=== PATIENT | female | born 1980 | race Caucasian/White ===

== ENCOUNTER 2017-04-19 23:25 | Emergency (ER) | payer MEDICAID ==
[2017-04-20] MEDS ORDERED: Diltiazem 25 MG/5 ML SDV IVPUSH STA (00:02)
[2017-04-20] MEDS ORDERED: Diltiazem 125 MG in Sodium Chloride 0.9% 100 ML IV SCH (00:15)
[2017-04-20] MEDS ORDERED: Diltiazem 25 MG/5 ML SDV ONE (00:20)
[2017-04-20 00:55] VITALS: BP 118/82
--- NOTE | 2017-04-20 01:19 | EDM.PDOC ---
ED HPI GENERAL MEDICAL PROBLEM - General Chief Complaint: Cardiovascular Problem Stated Complaint: CHEST PAIN Time Seen by Provider: 04/19/17 23:42 Source of Information: Reports: Patient, Family (Mother), RN Notes Reviewed History Limitations: Reports: No Limitations - History of Present Illness INITIAL COMMENTS - FREE TEXT/NARRATIVE: The patient states that she has a history of paroxysmal atrial fibrillation/ flutter diagnosed approximately 2005. She states that she underwent an ablation in 2011 which decreased the frequency of her episodes. She is currently being treated with atenolol, Cardizem, and an oral anticoagulant, the name of which she cannot recall. She states that she underwent a cholecystectomy on 12/05/2016, and ever since then, the frequency of her atrial fibrillation has increased. 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 She now presents with chest pain that lasts only a few minutes, but his recurrent, along with lightheadedness and possible syncope earlier today. No palpitations. The symptoms have been coming and going over the past 2 weeks. She states that she saw her PCP, Tana Garcia on 04/08/2017, but that she forgot to mention these symptoms to her. Here in the ED, the patient's monitor indicates atrial fibrillation at 113 bpm. Her BP is 129/91. Her oxygen saturation is 98% on room air. Chest Pain Score (Numeric/FACES): 9 - Related Data Allergies Allergy/AdvReac Type Severity Reaction Status Date / Time No Known Allergies Allergy Verified 04/19/17 23:32 Home Meds: Home Meds Diltiazem HCl [Diltiazem 24Hr ER] 240 mg PO DAILY 05/31/15 [History] Gabapentin [Neurontin] 800 mg PO QID 05/31/15 [History] tiZANidine [Zanaflex] 4 mg PO TID 05/31/15 [History] Hyoscyamine Sulfate [Levsin-Sl] 0.125 mg SL TID PRN #10 tab.subl 03/26/16 [Rx] Albuterol [Proventil HFA] 2 puff INH QID PRN #1 inhaler 06/26/16 [Rx] Atenolol 12.5 mg PO BID 07/22/16 [History] hydrOXYzine HCl [Atarax] 25 mg PO QID PRN 07/27/16 [History] medroxyPROGESTERone Acetate [Depo-Provera] 150 mg IM ASDIRECTED 09/11/16 [ History] Ondansetron [Zofran ODT] 4 mg PO Q8H PRN #10 tab.dis 09/12/16 [Rx] Albuterol Sulfate 1 inh NEB Q4HR PRN 12/04/16 [History] Amitriptyline [Elavil] 1 tab PO BEDTIME 12/04/16 [History] Diltiazem HCl [Cartia Xt] 1 cap PO DAILY 12/04/16 [History] LORazepam [Ativan] 1 tab PO DAILY PRN 12/04/16 [History] Sertraline [Zoloft] 1 tab PO DAILY 12/04/16 [History] Warfarin [Coumadin] 5 mg PO SUTUTHSA 12/04/16 [History] Warfarin [Coumadin] 7.5 mg PO MOWEFR 12/04/16 [History] Zolpidem Tartrate [Ambien] 1 tab PO BEDTIME PRN 12/04/16 [History] traZODone 1 tab PO BEDTIME 12/04/16 [History] Enoxaparin Sodium [Lovenox] 100 mg SQ DAILY 12/05/16 [History] Past Medical History HEENT History: Reports: Other (See Below) Other HEENT History: wears dentures Cardiovascular History: Reports: Afib (Paroxysmal A-fib/flutter), Hypertension Respiratory History: Reports: Asthma Genitourinary History: Reports: Urinary Incontinence (stress) 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: : 3 Para: 3 Psychiatric History: Reports: Addiction, Anxiety Endocrine/Metabolic History: Reports: Obesity/BMI 30+ - Infectious Disease History Infectious Disease History: Reports: Chicken Pox - Past Surgical History HEENT Surgical History: Reports: Tonsillectomy Cardiovascular Surgical History: Reports: Cardiac Ablation GI Surgical History: Reports: Cholecystectomy Female Surgical History: Reports: Section (x 3) Musculoskeletal Surgical History: Reports: Carpal Tunnel (bilateral) Social & Family History - Family History Family Medical History: Noncontributory - Tobacco Use Smoking Status *Q: Current Every Day Smoker Years of Tobacco use: 18 Packs/Tins Daily: 1 - Caffeine Use Caffeine Use: Reports: Soda - Alcohol Use Alcohol Use History: Yes Date/Time of Last Drink Comment: 2013 - Recreational Drug Use Recreational Drug Use: No - Living Situation & Occupation Living situation: Reports: , with Family (2 kids) Occupation: Unemployed ED ROS GENERAL - Review of Systems Review Of Systems: See Below Constitutional: Reports: No Symptoms HEENT: Reports: No Symptoms Respiratory: Reports: Cough ("smoker's cough") Cardiovascular: Reports: No Symptoms Endocrine: Reports: No Symptoms GI/Abdominal: Reports: No Symptoms : Reports: No Symptoms Musculoskeletal: Reports: No Symptoms Skin: Reports: No Symptoms Neurological: Reports: No Symptoms Psychiatric: Reports: No Symptoms Hematologic/Lymphatic: Reports: No Symptoms Immunologic: Reports: No Symptoms ED EXAM, GENERAL - Physical Exam Exam: See Below Exam Limited By: No Limitations General Appearance: Alert, WD/WN, No Apparent Distress Eye Exam: Bilateral Eye: Normal Inspection Ears: Normal External Exam, Hearing Grossly Normal Ear Exam: Bilateral Ear: Auricle Normal Nose: Normal Inspection, Normal Mucosa, No Blood Throat/Mouth: Normal Inspection, Normal Lips, Normal Voice, No Airway Compromise Head: Atraumatic, Normocephalic Neck: Normal Inspection, Full Range of Motion Respiratory/Chest: No Respiratory Distress, Lungs Clear, Normal Breath Sounds, No Accessory Muscle Use Cardiovascular: Normal Peripheral Pulses, No Gallop, No JVD, No Murmur, No Rub, Tachycardia, Irregularly Irregular Peripheral Pulses: 4+: Radial (L), Radial (R) GI/Abdominal: Normal Bowel Sounds, Soft, Non-Tender, No Organomegaly, No Distention, No Abnormal Bruit, No Mass, Other (Obese) (Female) Exam: Deferred Rectal (Female) Exam: Deferred Back Exam: Normal Inspection, Full Range of Motion, NT Extremities: Normal Inspection, Normal Range of Motion, No Pedal Edema, Normal Capillary Refill Neurological: Alert, Oriented, Normal Cognition, No Motor/Sensory Deficits Psychiatric: Normal Affect Skin Exam: Warm, Dry, Intact, Normal Color, No Rash Lymphatic: No Adenopathy EKG INTERPRETATION EKG Date: 04/19/17 Time: 23:35 Rhythm: a-fib Rate (beats/min): 137 [place]: normal P-wave: absent QRS: other (Nonspecific intraventricular conduction delay, likely incomplete RBBB) ST-T: normal QT: normal Comparison: no change (06/26/2016) Course - Vital Signs Last Recorded V/S: Last Vital Signs Temp 36.9 C 04/19/17 23:33 Pulse 78 04/20/17 00:54 Resp 18 04/19/17 23:33 BP 118/82 04/20/17 00:54 Pulse Ox 98 04/20/17 00:54 - Orders/Labs/Meds Orders: Active Orders 24 hr Category Date Time Status EKG Documentation Completion [RC] STAT Care 04/19/17 23:29 Active Chest 2V [CR] Stat Exams 04/20/17 00:01 Taken Labs: Laboratory Tests 04/19/17 04/19/17 04/19/17 Range/Units 23:46 23:46 23:46 WBC 7.84 (3.98-10.04) K/mm3 RBC 5.18 (3.98-5.22) M/mm3 Hgb 14.4 (11.2-15.7) gm/L Hct 41.0 (34.1-44.9) % MCV 79.2 L (79.4-94.8) fl MCH 27.8 (25.6-32.2) pg MCHC 35.1 (32.2-35.5) g/dl RDW Std Deviation 37.1 (36.4-46.3) fL Plt Count 289 (182-369) K/mm3 MPV 11.3 (9.4-12.3) fl Neutrophils % (Manual) 56 (40-60) % Band Neutrophils % 0 (0-10) % Lymphocytes % (Manual) 40 (20-40) % Atypical Lymphs % 0 % Monocytes % (Manual) 1 L (2-10) % Eosinophils % (Manual) 3 (0.7-5.8) % Basophils % (Manual) 0 L (0.1-1.2) Platelet Estimate Adequate RBC Morph Comment Normal PT 11.3 (8.0-13.0) SECONDS INR 1.03 APTT 30 (22-36) SECONDS D-Dimer, Quantitative < 0.19 L (0.19-0.59) mg/L Sodium 141 (136-145) mEq/L Potassium 3.3 L (3.5-5.1) mEq/L Chloride 107 (98-107) mEq/L Carbon Dioxide 18 L (21-32) mEq/L Anion Gap 19.3 H (5-15) BUN 15 (7-18) mg/dL Creatinine 1.3 H (0.55-1.02) mg/dL Est Cr Clr Drug Dosing TNP Estimated GFR (MDRD) 46 (>60) mL/min BUN/Creatinine Ratio 11.5 L (14-18) Glucose 101 (74-106) mg/dL Calcium 9.1 (8.5-10.1) mg/dL Total Bilirubin 0.4 (0.2-1.0) mg/dL AST 29 (15-37) U/L ALT 64 H (14-59) U/L Alkaline Phosphatase 125 H (46-116) U/L Troponin I < 0.017 (0.00-0.056) ng/mL B-Natriuretic Peptide (0-100) pg/mL Total Protein 7.4 (6.4-8.2) g/dl Albumin 4.1 (3.4-5.0) g/dl Globulin 3.3 gm/dL Albumin/Globulin Ratio 1.2 (1-2) 05//17 Range/Units 23:46 WBC (3.98-10.04) K/mm3 RBC (3.98-5.22) M/mm3 Hgb (11.2-15.7) gm/L Hct (34.1-44.9) % MCV (79.4-94.8) fl MCH (25.6-32.2) pg MCHC (32.2-35.5) g/dl RDW Std Deviation (36.4-46.3) fL Plt Count (182-369) K/mm3 MPV (9.4-12.3) fl Neutrophils % (Manual) (40-60) % Band Neutrophils % (0-10) % Lymphocytes % (Manual) (20-40) % Atypical Lymphs % % Monocytes % (Manual) (2-10) % Eosinophils % (Manual) (0.7-5.8) % Basophils % (Manual) (0.1-1.2) Platelet Estimate RBC Morph Comment PT (8.0-13.0) SECONDS INR APTT (22-36) SECONDS D-Dimer, Quantitative (0.19-0.59) mg/L Sodium (136-145) mEq/L Potassium (3.5-5.1) mEq/L Chloride (98-107) mEq/L Carbon Dioxide (21-32) mEq/L Anion Gap (5-15) BUN (7-18) mg/dL Creatinine (0.55-1.02) mg/dL Est Cr Clr Drug Dosing Estimated GFR (MDRD) (>60) mL/min BUN/Creatinine Ratio (14-18) Glucose (74-106) mg/dL Calcium (8.5-10.1) mg/dL Total Bilirubin (0.2-1.0) mg/dL AST (15-37) U/L ALT (14-59) U/L Alkaline Phosphatase (46-116) U/L Troponin I (0.00-0.056) ng/mL B-Natriuretic Peptide 76 (0-100) pg/mL Total Protein (6.4-8.2) g/dl Albumin (3.4-5.0) g/dl Globulin gm/dL Albumin/Globulin Ratio (1-2) Meds: Medications Discontinued Medications Generic Name Dose Route Start Last Admin Trade Name Liset PRN Reason Stop Dose Admin Diltiazem HCl 10 mg 04/20/17 00:02 04/20/17 00:29 Diltiazem IVPUSH 04/20/17 00:03 10 mg ONETIME STA Administration Diltiazem HCl Confirm 04/20/17 00:20 04/20/17 00:29 Diltiazem Administered 04/20/17 00:21 Not Given Dose 25 mg .ROUTE .STK-MED ONE Diltiazem HCl 125 mg/ Sodium 125 mls @ 10 mls/hr 04/20/17 00:15 04/20/17 00: 34 Chloride IV 10 mg/hr TITRATE MALIKA 10 mls/hr Protocol Administration 10 MG/HR - Radiology Interpretation Free Text/Narrative:: Two-view chest radiograph reviewed. Mild cardiomegaly is noted. No pulmonary vascular congestion. No pleural effusions. No focal infiltrate. No pneumothorax. Formal read per the Radiologist pending. - Re-Assessments/Exams Free Text/Narrative Re-Assessment/Exam: 04/20/17 01:23 The patient's heart rate is now 76 following Cardizem 10 mg IV push and Cardizem drip at 10 mg per hour. The patient would like to go home. As this is a recurrent issue, I do not feel strongly that she needs to be admitted to the hospital. I would like to increase the patient's Cardizem, however, the patient does not know the dosage of her medications. I will have her followup with her Paring Machine Operator this coming week. Departure - Departure Time of Disposition: : Disposition: Home, Self-Care 01 Condition: fair Clinical Impression: Atrial fibrillation with RVR Instructions: Atrial Fibrillation, [id number] Referrals: Tana Garcia PA-C [Primary Care Provider] - Forms: ED Department Discharge Additional Instructions: You were seen in the emergency room for recurrent chest pain. Workup in the ER included blood work, an ECG, and a chest x-ray. Your workup showed that you are in atrial fibrillation with rapid ventricular response. The remainder of your workup was unremarkable. You have not suffered a heart attack. You do not have a blood clot in her lungs. You do not have pneumonia. You are not anemic. Your not in congestive heart failure. Your heart was slowed down with IV Cardizem. We would like to increase the dosage of your oral Cardizem, however, we are not certain of your current dose. Please followup with your Paring Machine Operator at the next available appointment. If any other problems, please do not hesitate to return to the ER. - My Orders Last 24 Hours: My Active Orders 04/19/17 23:29 EKG Documentation Completion [RC] STAT 04/20/17 00:01 Chest 2V [CR] Stat - Assessment/Plan Last 24 Hours: My Active Orders 04/19/17 23:29 EKG Documentation Completion [RC] STAT 04/20/17 00:01 Chest 2V [CR] Stat
--- NOTE | 2017-04-21 08:17 | CR ---
Chest: Two views of the chest were obtained. Comparison: No previous chest x-ray. Heart size slightly enlarged. Upper mediastinum is normal. Lungs are clear with no acute infiltrates. Surgical clips are seen from prior cholecystectomy. Minimal degenerative change is scattered within the spine. Impression: 1. Slight cardiomegaly and other incidental findings. Nothing acute is appreciated. Diagnostic code #2
== END 2017-04-20 01:39 | disposition home or self-care (01) ==
LOC: JD.ED 23:25
DX: I48.91 Unspecified atrial fibrillation (principal); I10 Essential (primary) hypertension; J45.909 Unspecified asthma, uncomplicated; F41.9 Anxiety disorder, unspecified; E66.9 Obesity, unspecified; Z98.890 Other specified postprocedural states; Z90.49 Acquired absence of other specified parts of digestive tract; Z79.899 Other long term (current) drug therapy; Z79.01 Long term (current) use of anticoagulants; Z79.02 Long term (current) use of antithrombotics/antiplatelets; F17.210 Nicotine dependence, cigarettes, uncomplicated; Z68.41 Body mass index [BMI] 40.0-44.9, adult
CPT/HCPCS: 36415; 71020; 80053; 83880; 84484; 85025; 85379; 85610; 85730; 93005; 96365; 99285; J7030; 99284; J3490

== ENCOUNTER 2017-07-03 12:11 | Emergency (ER) | payer MEDICAID ==
[2017-07-03] MEDS ORDERED: Aspirin 81 MG Tab.Chew PO ONE (12:27)
[2017-07-03] MEDS ORDERED: Sodium Chloride 0.9% 10 ML Syringe FLUSH PRN (12:27)
[2017-07-03] MEDS ORDERED: Diltiazem 25 MG/5 ML SDV IVPUSH ONE (12:28)
[2017-07-03] MEDS ORDERED: Sodium Chloride 0.9% 1,000 ML IV SCH (12:30)
[2017-07-03] MEDS ORDERED: Diltiazem 125 MG in Sodium Chloride 0.9% 100 ML IV SCH (12:30)
[2017-07-03] MEDS ORDERED: Ketorolac 30 MG/ML SDV IVPUSH ONE (13:25)
--- NOTE | 2017-07-03 14:31 | EDM.PDOC ---
ED HPI GENERAL MEDICAL PROBLEM - General Chief Complaint: Chest Pain Stated Complaint: CHEST PAIN Time Seen by Provider: 07/03/17 12:19 Source of Information: Reports: Patient History Limitations: Reports: No Limitations - History of Present Illness INITIAL COMMENTS - FREE TEXT/NARRATIVE: The patient presents with palpitations, chest pain and tingling and numbness in her face. The chest pain has been there for 2 weeks. The facial numbness started this morning. She has no shortness of breath. She has a history of A- fib and she is on eliquis. She denies any recent changes to her medications. She is going to [place] to see her fisheries director next week. Onset: Gradual Duration: Week(s): Location: Reports: Chest Quality: Reports: Sharp Severity: Moderate Improves with: Reports: None Worsens with: Reports: None Context: Reports: Activity Associated Symptoms: Reports: Chest Pain. Denies: Shortness of Breath Chest Pain Score (Numeric/FACES): 7 - Related Data Allergies Allergy/AdvReac Type Severity Reaction Status Date / Time No Known Allergies Allergy Verified 04/19/17 23:32 Home Meds: Home Meds Diltiazem HCl [Diltiazem 24Hr ER] 240 mg PO DAILY 05/31/15 [History] Gabapentin [Neurontin] 800 mg PO QID 05/31/15 [History] tiZANidine [Zanaflex] 4 mg PO QID 05/31/15 [History] Albuterol [Proventil HFA] 2 puff INH QID PRN #1 inhaler 06/26/16 [Rx] Atenolol 12.5 mg PO BID 07/22/16 [History] hydrOXYzine HCl [Atarax] 50 mg PO QID PRN 07/27/16 [History] medroxyPROGESTERone Acetate [Depo-Provera] 150 mg IM ASDIRECTED 09/11/16 [ History] LORazepam [Ativan] 1 tab PO DAILY PRN 12/04/16 [History] Sertraline [Zoloft] 100 mg PO BID 12/04/16 [History] Zolpidem Tartrate [Ambien] 1 tab PO BEDTIME PRN 12/04/16 [History] traZODone 1 tab PO BEDTIME 12/04/16 [History] Apixaban [Eliquis] 5 mg PO BID 07/03/17 [History] Potassium Chloride 20 meq PO DAILY #20 tablet.er 07/03/17 [Rx] Past Medical History HEENT History: Reports: Other (See Below) Other HEENT History: wears dentures Cardiovascular History: Reports: Afib Other Cardiovascular History: atrial fib and flutter. 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: Musculoskeletal History: Reports: Other (See Below) Other Musculoskeletal History: hand weakness, carpal tunnel, muscle spasm Neurological History: Reports: CVA, Migraines, TIA Psychiatric History: Reports: Addiction, Anxiety Endocrine/Metabolic History: Reports: Obesity/BMI 30+ Dermatologic History: Reports: Other (See Below) Other Dermatologic History: r hand burn - Infectious Disease History Infectious Disease History: Reports: Chicken Pox - Past Surgical History HEENT Surgical History: Reports: Tonsillectomy Cardiovascular Surgical History: Reports: Cardiac Ablation Respiratory Surgical History: Reports: None GI Surgical History: Reports: Cholecystectomy Female Surgical History: Reports: Section Musculoskeletal Surgical History: Reports: Carpal Tunnel Social & Family History - Family History Family Medical History: Noncontributory - Tobacco Use Smoking Status *Q: Current Every Day Smoker Years of Tobacco use: 18 Packs/Tins Daily: 1 Used Tobacco, but Quit: No Second Hand Smoke Exposure: No - Caffeine Use Caffeine Use: Reports: Soda - Recreational Drug Use Recreational Drug Use: No - Living Situation & Occupation Living situation: Reports: , with Family (2 kids) Occupation: Unemployed ED ROS GENERAL - Review of Systems Review Of Systems: See Below Constitutional: Reports: No Symptoms HEENT: Reports: No Symptoms Respiratory: Reports: No Symptoms Cardiovascular: Reports: Chest Pain Endocrine: Reports: No Symptoms GI/Abdominal: Reports: No Symptoms : Reports: No Symptoms Musculoskeletal: Reports: No Symptoms Skin: Reports: No Symptoms Neurological: Reports: Numbness (face and tingling) ED EXAM, GENERAL - Physical Exam Exam: See Below Exam Limited By: No Limitations General Appearance: Alert, No Apparent Distress Ears: Normal External Exam Nose: Normal Inspection Head: Atraumatic, Normocephalic Neck: Normal Inspection Respiratory/Chest: No Respiratory Distress, Lungs Clear, Normal Breath Sounds Cardiovascular: No Edema, No Murmur, Irregularly Irregular GI/Abdominal: Soft, Non-Tender, No Organomegaly, No Mass Back Exam: Normal Inspection Extremities: Normal Inspection Neurological: Alert, Oriented, Other (No weakness but she does have numbness to both sides of her face) EKG INTERPRETATION EKG Date: 07/03/17 Time: 12:48 Rhythm: A-Fib Rate (Beats/Min): 97 [place]: Normal P-Wave: Present QRS: Normal ST-T: Normal QT: Normal Course - Vital Signs Last Recorded V/S: Last Vital Signs Temp 97.3 F 07/03/17 12:48 Pulse 95 07/03/17 12:48 Resp 17 07/03/17 12:48 BP 135/96 H 07/03/17 12:48 Pulse Ox 97 07/03/17 12:48 - Orders/Labs/Meds Orders: Active Orders 24 hr Category Date Time Status Cardiac Monitoring [RC] . DIRECTED Care 07/03/17 12:27 Active EKG Documentation Completion [RC] STAT Care 07/03/17 12:27 Active Oxygen Therapy [RC] PRN Care 07/03/17 12:27 Active Peripheral IV Care [RC] . DIRECTED Care 07/03/17 12:28 Active Chest 1V Frontal [CR] Stat Exams 07/03/17 12:28 Taken Head wo Cont [CT] Stat Exams 07/03/17 12:29 Taken Diltiazem 125 mg Med 07/03/17 12:30 Active Sodium Chloride 0.9% [Normal Saline] 100 ml IV TITRATE Sodium Chloride 0.9% [Normal Saline] 1,000 ml Med 07/03/17 12:30 Active IV ASDIRECTED Sodium Chloride 0.9% [Saline Flush] Med 07/03/17 12:27 Active 10 ml FLUSH ASDIRECTED PRN Peripheral IV Insertion Adult [OM.PC] Stat Oth 07/03/17 12:27 Ordered Medication Orders Diltiazem HCl 125 mg/ Sodium (Chloride) 125 mls @ 10 mls/hr IV TITRATE MALIKA; 10 MG/HR PRN Reason: Protocol Last Admin: 07/03/17 13:00 Dose: 10 mg/hr, 10 mls/hr Sodium Chloride (Normal Saline) 1,000 mls @ 125 mls/hr IV ASDIRECTED MALIKA Last Admin: 07/03/17 13:04 Dose: 125 mls/hr Sodium Chloride (Saline Flush) 10 ml FLUSH ASDIRECTED PRN PRN Reason: Keep Vein Open Last Admin: 07/03/17 13:19 Dose: 10 ml Labs: Laboratory Tests 07/03/17 07/03/17 07/03/17 Range/Units 13:04 13:04 13:04 WBC 7.61 (3.98-10.04) K/mm3 RBC 4.76 (3.98-5.22) M/mm3 Hgb 13.3 (11.2-15.7) gm/L Hct 37.3 (34.1-44.9) % MCV 78.4 L (79.4-94.8) fl MCH 27.9 (25.6-32.2) pg MCHC 35.7 H (32.2-35.5) g/dl RDW Std Deviation 38.8 (36.4-46.3) fL Plt Count 216 (182-369) K/mm3 MPV 11.1 (9.4-12.3) fl Neut % (Auto) 50.3 (34.0-71.1) % Lymph % (Auto) 38.5 (19.3-51.7) % [place] % (Auto) 8.8 (4.7-12.5) % Eos % (Auto) 1.6 (0.7-5.8) Baso % (Auto) 0.7 (0.1-1.2) % Neut # (Auto) 3.83 (1.56-6.13) K/mm3 Lymph # (Auto) 2.93 (1.18-3.74) K/mm3 [place] # (Auto) 0.67 H (0.24-0.36) K/mm3 Eos # (Auto) 0.12 (0.04-0.36) K/mm3 Baso # (Auto) 0.05 (0.01-0.08) K/mm3 PT 10.8 (8.0-13.0) SECONDS INR 0.99 Sodium 140 (136-145) mEq/L Potassium 2.5 L (3.5-5.1) mEq/L Chloride 105 (98-107) mEq/L Carbon Dioxide 24 (21-32) mEq/L Anion Gap 13.5 (5-15) BUN 15 (7-18) mg/dL Creatinine 1.2 H (0.55-1.02) mg/dL Est Cr Clr Drug Dosing 55.43 mL/min Estimated GFR (MDRD) 51 (>60) mL/min BUN/Creatinine Ratio 12.5 L (14-18) Glucose 107 H (74-106) mg/dL Calcium 9.4 (8.5-10.1) mg/dL Total Bilirubin 0.3 (0.2-1.0) mg/dL AST 15 (15-37) U/L ALT 33 (14-59) U/L Alkaline Phosphatase 81 (46-116) U/L Troponin I < 0.017 (0.00-0.056) ng/mL Total Protein 6.7 (6.4-8.2) g/dl Albumin 4.0 (3.4-5.0) g/dl Globulin 2.7 gm/dL Albumin/Globulin Ratio 1.5 (1-2) HCG, Qual (NEGATIVE) 07/03/17 Range/Units 13:04 WBC (3.98-10.04) K/mm3 RBC (3.98-5.22) M/mm3 Hgb (11.2-15.7) gm/L Hct (34.1-44.9) % MCV (79.4-94.8) fl MCH (25.6-32.2) pg MCHC (32.2-35.5) g/dl RDW Std Deviation (36.4-46.3) fL Plt Count (182-369) K/mm3 MPV (9.4-12.3) fl Neut % (Auto) (34.0-71.1) % Lymph % (Auto) (19.3-51.7) % [place] % (Auto) (4.7-12.5) % Eos % (Auto) (0.7-5.8) Baso % (Auto) (0.1-1.2) % Neut # (Auto) (1.56-6.13) K/mm3 Lymph # (Auto) (1.18-3.74) K/mm3 [place] # (Auto) (0.24-0.36) K/mm3 Eos # (Auto) (0.04-0.36) K/mm3 Baso # (Auto) (0.01-0.08) K/mm3 PT (8.0-13.0) SECONDS INR Sodium (136-145) mEq/L Potassium (3.5-5.1) mEq/L Chloride (98-107) mEq/L Carbon Dioxide (21-32) mEq/L Anion Gap (5-15) BUN (7-18) mg/dL Creatinine (0.55-1.02) mg/dL Est Cr Clr Drug Dosing mL/min Estimated GFR (MDRD) (>60) mL/min BUN/Creatinine Ratio (14-18) Glucose (74-106) mg/dL Calcium (8.5-10.1) mg/dL Total Bilirubin (0.2-1.0) mg/dL AST (15-37) U/L ALT (14-59) U/L Alkaline Phosphatase (46-116) U/L Troponin I (0.00-0.056) ng/mL Total Protein (6.4-8.2) g/dl Albumin (3.4-5.0) g/dl Globulin gm/dL Albumin/Globulin Ratio (1-2) HCG, Qual Negative (NEGATIVE) Meds: Medications Generic Name Dose Route Start Last Admin Trade Name Freq PRN Reason Stop Dose Admin Diltiazem HCl 125 mg/ Sodium 125 mls @ 10 mls/hr 07/03/17 12:30 07/03/17 13: 00 Chloride IV 10 mg/hr TITRATE MALIKA 10 mls/hr Protocol Administration 10 MG/HR Sodium Chloride 1,000 mls @ 125 mls/hr 07/03/17 12:30 07/03/17 13:04 Normal Saline IV 125 mls/hr ASDIRECTED MALIKA Administration Sodium Chloride 10 ml 07/03/17 12:27 07/03/17 13:19 Saline Flush FLUSH 10 ml ASDIRECTED PRN Administration Keep Vein Open Discontinued Medications Generic Name Dose Route Start Last Admin Trade Name Freq PRN Reason Stop Dose Admin Aspirin 324 mg 07/03/17 12:27 07/03/17 12:53 Aspirin PO 07/03/17 12:28 324 mg ONETIME ONE Administration Diltiazem HCl 10 mg 07/03/17 12:28 07/03/17 12:54 Diltiazem IVPUSH 07/03/17 12:29 10 mg ONETIME ONE Administration Ketorolac Tromethamine 30 mg 07/03/17 13:25 07/03/17 13:33 Toradol IVPUSH 07/03/17 13:26 30 mg ONETIME ONE Administration - Re-Assessments/Exams Free Text/Narrative Re-Assessment/Exam: 07/03/17 14:28 I ordered an IV saline lock, EKG, CXR, labs, aspirin, and a CT of her head. Her EKG shows atrial fib with no acute changes. Her CT looks good. Her CXR looks good. Her CBC looks good. Her CMP shows a low K of 2.5. Her troponin is negative. I ordered a cardizem bolus and drip. Her heart rate is much better. She asked for some toradol and the numbness in her face and chest pain went away. I will get her on some potassium and have her follow up with her fisheries director next week. Departure - Departure Time of Disposition: 14:35 Disposition: Home, Self-Care 01 Condition: Good Clinical Impression: Atrial fibrillation with RVR, Hypokalemia Chest pain Qualifiers: Chest pain type: unspecified Qualified Code(s): R07.9 - Chest pain, unspecified Prescriptions: Potassium Chloride 20 meq PO DAILY #20 tablet.er Referrals: Tana Garcia PA-C [Primary Care Provider] - Forms: ED Department Discharge Additional Instructions: Take your medication as prescribed. Take the potassium daily and have your potassium rechecked in 1 week. Please return if you are worse. - My Orders Last 24 Hours: My Active Orders 07/03/17 12:27 Cardiac Monitoring [RC] . DIRECTED EKG Documentation Completion [RC] STAT Oxygen Therapy [RC] PRN Sodium Chloride 0.9% [Saline Flush] 10 ml FLUSH ASDIRECTED PRN Peripheral IV Insertion Adult [OM.PC] Stat 07/03/17 12:28 Peripheral IV Care [RC] . DIRECTED Chest 1V Frontal [CR] Stat 07/03/17 12:29 Head wo Cont [CT] Stat 07/03/17 12:30 Diltiazem 125 mg Sodium Chloride 0.9% [Normal Saline] 100 ml IV TITRATE Sodium Chloride 0.9% [Normal Saline] 1,000 ml IV ASDIRECTED - Assessment/Plan Last 24 Hours: My Active Orders 07/03/17 12:27 Cardiac Monitoring [RC] . DIRECTED EKG Documentation Completion [RC] STAT Oxygen Therapy [RC] PRN Sodium Chloride 0.9% [Saline Flush] 10 ml FLUSH ASDIRECTED PRN Peripheral IV Insertion Adult [OM.PC] Stat 07/03/17 12:28 Peripheral IV Care [RC] . DIRECTED Chest 1V Frontal [CR] Stat 07/03/17 12:29 Head wo Cont [CT] Stat 07/03/17 12:30 Diltiazem 125 mg Sodium Chloride 0.9% [Normal Saline] 100 ml IV TITRATE Sodium Chloride 0.9% [Normal Saline] 1,000 ml IV ASDIRECTED
[2017-07-03 14:40] VITALS: BP 115/75
--- NOTE | 2017-07-04 11:04 | CT ---
Head CT Technique: Multiple axial sections through the brain were obtained. Intravenous contrast was not utilized. Comparison: Previous MRI brain dated 04/24/17 is available. Findings: Ventricles along with basal cisterns and sulci over the convexities are within normal limits for the patient's age. No abnormal parenchymal densities are seen. No evidence of intracranial hemorrhage. No midline shift or mass effect is seen. Bone window settings were reviewed which show no acute calvarial abnormality. Visualized sinuses are clear. Impression: 1. No abnormality is identified on noncontrast head CT exam. Diagnostic code #1 I agree with preliminary report issued by [facility] ([facility] report finalized on 07/03/17, 2:43 PM Central Time)
--- NOTE | 2017-07-04 11:04 | CR ---
Chest: Portable view of the chest was obtained. Comparison: Previous chest x-ray of 04/20/17. Heart size and mediastinum are within normal limits for portable technique. Lungs are clear. Bony structures are grossly intact. Surgical clips are noted from prior cholecystectomy. Impression: 1. Nothing acute is identified on portable chest x-ray. Diagnostic code #1
== END 2017-07-03 15:05 | disposition home or self-care (01) ==
LOC: JD.ED 12:11
DX: I48.91 Unspecified atrial fibrillation (principal); E87.6 Hypokalemia; R20.0 Anesthesia of skin; F17.210 Nicotine dependence, cigarettes, uncomplicated; Z86.73 Personal history of transient ischemic attack (TIA), and cerebral infarction without residual deficits; E66.9 Obesity, unspecified; Z98.890 Other specified postprocedural states; Z90.49 Acquired absence of other specified parts of digestive tract; Z79.899 Other long term (current) drug therapy
CPT/HCPCS: 36415; 70450; 71010; 80053; 84484; 84703; 85025; 85610; 93005; 96365; 96366; 96375; 96376; 99285; A9270; J1885; J7030; J7040; J7050; 99284; J3490

== ENCOUNTER 2017-07-12 15:17 | Emergency (ER) | payer MEDICAID ==
[2017-07-12] MEDS ORDERED: Sodium Chloride 0.9% 10 ML Syringe FLUSH PRN (15:53)
[2017-07-12] MEDS ORDERED: Diltiazem 25 MG/5 ML SDV IVPUSH ONE (15:57)
[2017-07-12] MEDS ORDERED: Diltiazem 125 MG in Sodium Chloride 0.9% 100 ML IV SCH (16:00)
[2017-07-12] MEDS ORDERED: Ketorolac 15 MG/ML SDV IVPUSH ONE (17:11)
--- NOTE | 2017-07-12 18:33 | EDM.PDOC ---
ED HPI GENERAL MEDICAL PROBLEM - General Chief Complaint: Cardiovascular Problem Stated Complaint: A-FIB Time Seen by Provider: 07/12/17 15:40 Source of Information: Reports: Patient, Old Records (recent ER visits) History Limitations: Reports: No Limitations - History of Present Illness INITIAL COMMENTS - FREE TEXT/NARRATIVE: 36 year old female presents for evaluation and treatment of a.fib with RVR. Patient reports she has had a.fib for several years. Had an ablation June 07, 2012. She is currently on atenolol, cardizem and eliquis for her a.fib. States she has been taking her medications as prescribed. Reports she last took a cardizem at 0400 today. Reports current symptoms of fatigue, near syncope, lightheadedness, headache and nausea. States this is how she feels when her heart rate increases. Heart rate was in the 140s at home. Patient took a zofran about 4 or 5 hours prior to arrival in the ER. Patient presented to the clinic but was sent over to us for further care. States when this occurs she frequently responds with a cardizem bolus and drip. Denies any chest pain or shortness of breath. Patient reports she is scheduled to have an ablation with Dr. Metzger in [place]. Headache Pain Score (Numeric/FACES): 9 - Related Data Allergies Allergy/AdvReac Type Severity Reaction Status Date / Time No Known Allergies Allergy Verified 07/12/17 15:30 Home Meds: Home Meds Diltiazem HCl [Diltiazem 24Hr ER] 240 mg PO DAILY 05/31/15 [History] Gabapentin [Neurontin] 800 mg PO QID 05/31/15 [History] tiZANidine [Zanaflex] 4 mg PO QID 05/31/15 [History] Albuterol [Proventil HFA] 2 puff INH QID PRN #1 inhaler 06/26/16 [Rx] Atenolol 12.5 mg PO BID 07/22/16 [History] hydrOXYzine HCl [Atarax] 50 mg PO QID PRN 07/27/16 [History] medroxyPROGESTERone Acetate [Depo-Provera] 150 mg IM ASDIRECTED 09/11/16 [ History] LORazepam [Ativan] 1 tab PO DAILY PRN 12/04/16 [History] Sertraline [Zoloft] 100 mg PO BID 12/04/16 [History] Zolpidem Tartrate [Ambien] 1 tab PO BEDTIME PRN 12/04/16 [History] traZODone 1 tab PO BEDTIME 12/04/16 [History] Apixaban [Eliquis] 5 mg PO BID 07/03/17 [History] Potassium Chloride 20 meq PO DAILY #20 tablet.er 07/03/17 [Rx] Past Medical History HEENT History: Reports: Other (See Below) Other HEENT History: wears dentures Cardiovascular History: Reports: Afib Other Cardiovascular History: atrial fib and flutter. 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 History: Reports: None [employer] History: Reports: Other OB/BYN History: Musculoskeletal History: Reports: Other (See Below) Other Musculoskeletal History: hand weakness, carpal tunnel, muscle spasm Neurological History: Reports: CVA, Migraines, TIA Psychiatric History: Reports: Addiction, Anxiety Endocrine/Metabolic History: Reports: Obesity/BMI 30+ Dermatologic History: Reports: Other (See Below) Other Dermatologic History: r hand burn - Infectious Disease History Infectious Disease History: Reports: Chicken Pox - Past Surgical History HEENT Surgical History: Reports: Tonsillectomy Cardiovascular Surgical History: Reports: Cardiac Ablation Respiratory Surgical History: Reports: None GI Surgical History: Reports: Cholecystectomy Female Surgical History: Reports: Section Musculoskeletal Surgical History: Reports: Carpal Tunnel Social & Family History - Family History Family Medical History: Noncontributory - Tobacco Use Smoking Status *Q: Current Every Day Smoker Years of Tobacco use: 18 Packs/Tins Daily: 1 Used Tobacco, but Quit: No Second Hand Smoke Exposure: No - Caffeine Use Caffeine Use: Reports: Soda Other Caffeine Use: Daily - Recreational Drug Use Recreational Drug Use: No - Living Situation & Occupation Living situation: Reports: , with Family (2 kids) Occupation: Unemployed ED ROS GENERAL - Review of Systems Review Of Systems: See Below Constitutional: Reports: Malaise, Fatigue Respiratory: Denies: Shortness of Breath Cardiovascular: Denies: Chest Pain GI/Abdominal: Reports: Nausea. Denies: Vomiting Neurological: Reports: Dizziness, Headache. Denies: Syncope (near syncope) ED EXAM, GENERAL - Physical Exam Exam: See Below Exam Limited By: No Limitations General Appearance: Alert, WD/WN, No Apparent Distress Ears: Normal External Exam Nose: Normal Inspection Neck: Normal Inspection Respiratory/Chest: No Respiratory Distress, Lungs Clear, Normal Breath Sounds Cardiovascular: Normal Peripheral Pulses, No Murmur, Tachycardia, Irregularly Irregular Peripheral Pulses: 2+: Radial (L), Radial (R) Neurological: Alert, Oriented, Normal Cognition Psychiatric: Normal Affect, Normal Mood Skin Exam: Warm, Dry, Normal Color EKG INTERPRETATION EKG Date: 07/12/17 Time: 15:35 Rhythm: A-Fib Rate (Beats/Min): 129 [place]: Normal P-Wave: Absent QRS: Normal ST-T: Normal QT: Normal EKG Interpretation Comments: a.fib with RVR rate of 129. No ischemic changes. Reviewed by myself and Dr. Fofana. Course - Vital Signs Last Recorded V/S: Last Vital Signs Temp 36.9 C 07/12/17 15:25 Pulse 88 07/12/17 18:40 Resp 18 07/12/17 18:40 BP 145/74 H 07/12/17 18:40 Pulse Ox 99 07/12/17 18:40 - Orders/Labs/Meds Labs: Laboratory Tests 07/12/17 07/12/17 07/12/17 Range/Units 15:35 15:35 15:35 WBC 6.25 (3.98-10.04) K/mm3 RBC 4.82 (3.98-5.22) M/mm3 Hgb 13.4 (11.2-15.7) gm/L Hct 38.3 (34.1-44.9) % MCV 79.5 (79.4-94.8) fl MCH 27.8 (25.6-32.2) pg MCHC 35.0 (32.2-35.5) g/dl RDW Std Deviation 42.3 (36.4-46.3) fL Plt Count 238 (182-369) K/mm3 MPV 11.7 (9.4-12.3) fl Neut % (Auto) 43.2 (34.0-71.1) % Lymph % (Auto) 42.7 (19.3-51.7) % [place] % (Auto) 9.0 (4.7-12.5) % Eos % (Auto) 4.6 (0.7-5.8) Baso % (Auto) 0.5 (0.1-1.2) % Neut # (Auto) 2.70 (1.56-6.13) K/mm3 Lymph # (Auto) 2.67 (1.18-3.74) K/mm3 [place] # (Auto) 0.56 H (0.24-0.36) K/mm3 Eos # (Auto) 0.29 (0.04-0.36) K/mm3 Baso # (Auto) 0.03 (0.01-0.08) K/mm3 Sodium 142 (136-145) mEq/L Potassium 3.2 L (3.5-5.1) mEq/L Chloride 113 H (98-107) mEq/L Carbon Dioxide 16 L (21-32) mEq/L Anion Gap 16.2 H (5-15) BUN 11 (7-18) mg/dL Creatinine 1.0 (0.55-1.02) mg/dL Est Cr Clr Drug Dosing TNP Estimated GFR (MDRD) > 60 (>60) mL/min BUN/Creatinine Ratio 11.0 L (14-18) Glucose 137 H (74-106) mg/dL Calcium 9.1 (8.5-10.1) mg/dL Total Bilirubin 0.3 (0.2-1.0) mg/dL AST 21 (15-37) U/L ALT 60 H (14-59) U/L Alkaline Phosphatase 95 (46-116) U/L Troponin I < 0.017 (0.00-0.056) ng/mL Tli-H-Mcmrguspslj Pept 873 H (0-125) pg/mL Total Protein 6.2 L (6.4-8.2) g/dl Albumin 3.6 (3.4-5.0) g/dl Globulin 2.6 gm/dL Albumin/Globulin Ratio 1.4 (1-2) HCG, Qual Negative (NEGATIVE) Meds: Medications Discontinued Medications Generic Name Dose Route Start Last Admin Trade Name Freq PRN Reason Stop Dose Admin Diltiazem HCl 10 mg 07/12/17 15:57 07/12/17 16:05 Diltiazem IVPUSH 07/12/17 15:58 10 mg ONETIME ONE Administration Diltiazem HCl 125 mg/ Sodium 125 mls @ 10 mls/hr 07/12/17 16:00 Chloride IV TITRATE MALIKA Protocol 10 MG/HR Ketorolac Tromethamine 15 mg 07/12/17 17:11 07/12/17 17:20 Toradol IVPUSH 07/12/17 17:12 15 mg ONETIME ONE Administration Sodium Chloride 10 ml 07/12/17 15:53 07/12/17 15:57 Saline Flush FLUSH 10 ml ASDIRECTED PRN Administration Keep Vein Open - Radiology Interpretation Free Text/Narrative:: chest xray 1 view shows no acute intrathoracic process. - Re-Assessments/Exams Free Text/Narrative Re-Assessment/Exam: 07/12/17 18:30 Patient's heart rate dropped into the 70s-80s with the cardizem bolus. Therefore , the drip was held. I reviewed the patient's labs with her. At this point she is anxious to go home and does not want to stay in the hospital. I will have her follow-up with her PCP for further management and care until she sees cardiology. Discharge instructions as documented. Departure - Departure Time of Disposition: 18:31 Disposition: Home, Self-Care 01 Condition: Good Clinical Impression: Atrial fibrillation Instructions: Atrial Fibrillation, [id number] Referrals: Tana Garcia PA-C [Primary Care Provider] - Forms: ED Department Discharge, ED Return to Work/School Form Additional Instructions: Follow-up with PCP this week for a recheck of your symptoms. Continue with your current plan of care and see cardiology as planned in one month. Please return to the ER if your symptoms change or worsen.
[2017-07-12 18:54] VITALS: BP 145/74
--- NOTE | 2017-07-15 07:25 | CR ---
Chest: Frontal view of the chest was obtained. Comparison: Previous chest x-ray of 07/13/17. Heart size and mediastinum are within normal limits. Lungs are clear. Bony structures are grossly intact. Impression: 1. Nothing acute is identified on frontal chest x-ray. Diagnostic code #1
== END 2017-07-12 18:40 | disposition home or self-care (01) ==
LOC: JD.ED 15:17
DX: I48.91 Unspecified atrial fibrillation (principal); J45.909 Unspecified asthma, uncomplicated; F41.9 Anxiety disorder, unspecified; E66.9 Obesity, unspecified; Z86.73 Personal history of transient ischemic attack (TIA), and cerebral infarction without residual deficits; Z90.49 Acquired absence of other specified parts of digestive tract; Z98.890 Other specified postprocedural states; F17.210 Nicotine dependence, cigarettes, uncomplicated; Z68.39 Body mass index [BMI] 39.0-39.9, adult; Z79.899 Other long term (current) drug therapy
CPT/HCPCS: 36415; 71010; 80053; 83880; 84484; 84703; 85025; 93005; 96374; 96375; 99285; J1885; J7050; J3490

== ENCOUNTER 2017-09-06 13:08 | Emergency (ER) | payer MEDICAID ==
[2017-09-06 13:27] VITALS: BP 136/87
--- NOTE | 2017-09-06 13:46 | EDM.PDOC ---
ED HPI GENERAL MEDICAL PROBLEM - General Chief Complaint: General Stated Complaint: HEADACHE Time Seen by Provider: 09/06/17 13:36 Source of Information: Reports: Patient History Limitations: Reports: No Limitations - History of Present Illness INITIAL COMMENTS - FREE TEXT/NARRATIVE: 37-year-old female presents to the ED with increasing signs and symptoms of illness. She was started on Augmentin 875 mg twice a day on Saturday i.e. 3 days ago for suspected sinus infection. Imaging studies were not done of her sinuses. Since then she continued to have fever and intermittent chills. Her exam today she can't get warm. She's had diarrhea developed since starting the Augmentin. She's got a really bad headache which she claims is migraine 5 days associated with nausea and vomiting. Hasn't kept down much fluids or food or fluids in the last 3 days. Does have a productive sounding cough at times. This makes her headache much worse. Not really aware of any postnasal drip to suggest sinus infection. Does have a sore throat. No genitourinary complaints. Stools have been loose without blood. This is bilious without any blood. Of note she underwent cardiac catheterization on the for an ablation procedure for atrial fibrillation. She remains on Eliquis at this time as well as her Cardiazem for rate control. Wound in her right groin hurts a bit when she coughs but otherwise is not red or swollen. Onset: Gradual Onset Date: 09/04/17 Duration: Day(s): Location: Reports: Generalized (Mild diarrhea) Quality: Reports: Pressure, Throbbing, Other Severity: Moderate (Pounding headache) Improves with: Reports: None Worsens with: Reports: Movement Context: Denies: Activity, Exercise, Lifting, Sick Contact, Trauma, Other Associated Symptoms: Reports: Cough, cough w sputum, Fever/Chills, Headaches, Nausea/Vomiting, Weakness. Denies: No Other Symptoms, Confusion, Chest Pain ( Yellowish tinge to it.), Diaphoresis, Rash, Seizure, Shortness of Breath, Syncope Treatments DENTAL INSURANCE COORDINATOR: Reports: Acetaminophen, NSAIDS (Motrin) Headache Pain Score (Numeric/FACES): 9 - Related Data Allergies Allergy/AdvReac Type Severity Reaction Status Date / Time No Known Allergies Allergy Verified 09/06/17 13:27 Home Meds: Home Meds Diltiazem HCl [Diltiazem 24Hr ER] 240 mg PO DAILY 05/31/15 [History] Gabapentin [Neurontin] 800 mg PO QID 05/31/15 [History] tiZANidine [Zanaflex] 4 mg PO QID 05/31/15 [History] Albuterol [Proventil HFA] 2 puff INH QID PRN #1 inhaler 06/26/16 [Rx] Atenolol 6.25 mg PO DAILY 07/22/16 [History] hydrOXYzine HCl [Atarax] 50 mg PO QID PRN 07/27/16 [History] medroxyPROGESTERone Acetate [Depo-Provera] 150 mg IM ASDIRECTED 09/11/16 [ History] LORazepam [Ativan] 1 tab PO DAILY PRN 12/04/16 [History] Sertraline [Zoloft] 100 mg PO BID 12/04/16 [History] Zolpidem Tartrate [Ambien] 1 tab PO BEDTIME PRN 12/04/16 [History] traZODone 1 tab PO BEDTIME 12/04/16 [History] Apixaban [Eliquis] 5 mg PO BID 07/03/17 [History] Albuterol Sulfate 1.25 mg IH Q4H PRN 09/06/17 [History] Diltiazem HCl [Cartia Xt] 180 mg PO DAILY 09/06/17 [History] Doxycycline [Vibramycin] 100 mg PO Q12HR #16 cap 09/06/17 [Rx] Ondansetron [Zofran ODT] 4 mg PO Q6H #6 tab.dis 09/06/17 [Rx] SUMAtriptan [Imitrex] 100 mg PO ASDIRECTED 09/06/17 [History] Topiramate [Topiramate ER] 100 mg PO BEDTIME 09/06/17 [History] Past Medical History HEENT History: Reports: Other (See Below) Other HEENT History: wears dentures Cardiovascular History: Reports: Afib Other Cardiovascular History: atrial fib and flutter. 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 History: Musculoskeletal History: Reports: Other (See Below) Other Musculoskeletal History: hand weakness, carpal tunnel, muscle spasm Neurological History: Reports: CVA, Migraines, TIA Psychiatric History: Reports: Addiction, Anxiety Endocrine/Metabolic History: Reports: Obesity/BMI 30+ Dermatologic History: Reports: Other (See Below) Other Dermatologic History: r hand burn - Infectious Disease History Infectious Disease History: Reports: Chicken Pox - Past Surgical History HEENT Surgical History: Reports: Tonsillectomy Cardiovascular Surgical History: Reports: Cardiac Ablation Respiratory Surgical History: Reports: None GI Surgical History: Reports: Cholecystectomy Female Surgical History: Reports: Section Musculoskeletal Surgical History: Reports: Carpal Tunnel Social & Family History - Family History Family Medical History: Noncontributory - Tobacco Use Smoking Status *Q: Current Every Day Smoker Years of Tobacco use: 18 Packs/Tins Daily: 0.5 Used Tobacco, but Quit: No Second Hand Smoke Exposure: No - Caffeine Use Caffeine Use: Reports: Soda Other Caffeine Use: Daily - Recreational Drug Use Recreational Drug Use: No - Living Situation & Occupation Living situation: Reports: , with Family (2 kids) Occupation: Unemployed ED ROS GENERAL - Review of Systems Review Of Systems: See Below Constitutional: Reports: Fever, Chills, Malaise, Weakness, Fatigue, Decreased Appetite. Denies: Weight Loss HEENT: Reports: Sinus Problem. Denies: Ear Pain, Rhinitis, Vertigo Respiratory: Reports: Shortness of Breath, Cough. Denies: Wheezing, Pleuritic Chest Pain Cardiovascular: Reports: No Symptoms, Chest Pain, Lightheadedness. Denies: Blood Pressure Problem (Upper chest discomfort from coughing.), Claudication, Dyspnea on Exertion, Edema, Orthopnea, Palpitations (Not since ablation has been carried out) Endocrine: Reports: Fatigue GI/Abdominal: Reports: Diarrhea (2 days since starting Augmentin therapy.), Decreased Appetite, Nausea, Vomiting (With the intensity of the headache.) : Reports: No Symptoms Musculoskeletal: Reports: Back Pain, Muscle Pain (Generalized myalgia.) Skin: Reports: No Symptoms Neurological: Reports: Dizziness, Headache. Denies: Numbness, Paresthesia, Pre- Existing Deficit, Seizure, Syncope, Tingling, Tremors, Trouble Speaking Psychiatric: Reports: Anxiety, Depression Hematologic/Lymphatic: Reports: No Symptoms Immunologic: Reports: No Symptoms ED EXAM, GENERAL - Physical Exam Exam: See Below Exam Limited By: No Limitations General Appearance: Alert, Other (She appears to be uncomfortable. To examine in the left position. Is dressed quite warmly. Temperature reported to be 36.2 by nursing staff. O2 sats 100% on room air.) Eye Exam: Bilateral Eye: Normal Inspection Ears: Normal TMs Nose: Other (Muscle mildly congested. Minimal swelling of the middle turbinates. No) Throat/Mouth: Normal Inspection ( polyps appreciated.), Normal Lips, Normal Teeth, Normal Oropharynx Head: Atraumatic, Normocephalic Neck: Normal Inspection, Supple, Non-Tender, Full Range of Motion. No: Lymphadenopathy (L), Lymphadenopathy (R) Respiratory/Chest: Lungs Clear, Normal Breath Sounds (Mild tachypnea at rest), No Accessory Muscle Use, Chest Non-Tender, Respiratory Distress, Other ( Paroxysmal cough for the most part sounds dry.) Cardiovascular: Normal Peripheral Pulses, Regular Rate, Rhythm, No Edema, No Gallop, No Murmur, No Rub Peripheral Pulses: 3+: Posterior Tibial (L), Posterior Tibial (R), Dorsalis Pedis (L), Dorsalis Pedis (R) GI/Abdominal: Normal Bowel Sounds, Soft, Non-Tender, No Organomegaly, Other ( Abdominal girth limits ability to palpate solid organs.). No: Rigid, Rebound, Tender Back Exam: Normal Inspection, Full Range of Motion. No: CVA Tenderness (L), CVA Tenderness (R) Extremities: Normal Inspection, Normal Range of Motion, Non-Tender, No Pedal Edema, Normal Capillary Refill Neurological: Alert, Oriented, CN II-XII Intact, Normal Cognition, Normal Gait Psychiatric: Normal Affect, Normal Mood Skin Exam: Warm, Dry, Intact, Normal Color, No Rash Course - Vital Signs Last Recorded V/S: Last Vital Signs Temp 36.2 C 09/06/17 13:22 Pulse 80 09/06/17 13:22 Resp 20 09/06/17 13:22 BP 136/87 09/06/17 13:22 Pulse Ox 100 09/06/17 13:22 - Orders/Labs/Meds Orders: Active Orders 24 hr Category Date Time Status Chest 1V Frontal [CR] Stat Exams 09/06/17 13:48 Taken CULTURE BLOOD [BC] Stat Lab 09/06/17 14:15 Received CULTURE BLOOD [BC] Stat Lab 09/06/17 14:30 Received Dextrose 5%-0.9% NaCl [Dextrose 5%-Normal Saline] 1,000 Med 09/06/17 14:00 Active ml IV ASDIRECTED HYDROmorphone [Dilaudid] Med 09/06/17 16:06 Once 0.5 mg IVPUSH ONETIME ONE Ketorolac [Toradol] Med 09/06/17 14:00 Active 30 mg IVPUSH ONETIME Blood Culture x2 Reflex Set [OM.PC] Stat Oth 09/06/17 13:48 Ordered Medication Orders Dextrose/Sodium Chloride (Dextrose 5%-Normal Saline) 1,000 mls @ 999 mls/hr IV ASDIRECTED MALIKA Last Admin: 09/06/17 14:21 Dose: 999 mls/hr Ketorolac Tromethamine (Toradol) 30 mg IVPUSH ONETIME MALIKA Last Admin: 09/06/17 14:28 Dose: 30 mg Labs: Laboratory Tests 09/06/17 09/06/17 09/06/17 Range/Units 14:15 14:15 14:45 WBC 8.31 (3.98-10.04) K/mm3 RBC 4.97 (3.98-5.22) M/mm3 Hgb 14.2 (11.2-15.7) gm/L Hct 40.8 (34.1-44.9) % MCV 82.1 (79.4-94.8) fl MCH 28.6 (25.6-32.2) pg MCHC 34.8 (32.2-35.5) g/dl RDW Std Deviation 39.8 (36.4-46.3) fL Plt Count 239 (182-369) K/mm3 MPV 11.2 (9.4-12.3) fl Neutrophils % (Manual) 71 H (40-60) % Band Neutrophils % 0 (0-10) % Lymphocytes % (Manual) 26 (20-40) % Atypical Lymphs % 0 % Monocytes % (Manual) 1 L (2-10) % Eosinophils % (Manual) 2 (0.7-5.8) % Basophils % (Manual) 0 L (0.1-1.2) Platelet Estimate Adequate RBC Morph Comment Normal Sodium 143 (136-145) mEq/L Potassium 3.5 (3.5-5.1) mEq/L Chloride 107 (98-107) mEq/L Carbon Dioxide 22 (21-32) mEq/L Anion Gap 17.5 H (5-15) BUN 12 (7-18) mg/dL Creatinine 0.9 (0.55-1.02) mg/dL Est Cr Clr Drug Dosing 73.19 mL/min Estimated GFR (MDRD) > 60 (>60) mL/min BUN/Creatinine Ratio 13.3 L (14-18) Glucose 89 (74-106) mg/dL Calcium 9.5 (8.5-10.1) mg/dL Total Bilirubin 0.4 (0.2-1.0) mg/dL AST 26 (15-37) U/L ALT 50 (14-59) U/L Alkaline Phosphatase 96 (46-116) U/L C-Reactive Protein 0.7 (<1.0) mg/dL Total Protein 7.6 (6.4-8.2) g/dl Albumin 4.3 (3.4-5.0) g/dl Globulin 3.3 gm/dL Albumin/Globulin Ratio 1.3 (1-2) Urine Color Yellow (Yellow) Urine Appearance Slt cloudy H (Clear) Urine pH 5.5 (5.0-8.0) Ur Specific [place] > or = 1.030 (1.005-1.030) Urine Protein Trace H (Negative) Urine Glucose (UA) Negative (Negative) Urine Ketones Negative (Negative) Urine Occult Blood Negative (Negative) Urine Nitrite Negative (Negative) Urine Bilirubin Negative (Negative) Urine Urobilinogen 0.2 (0.2-1.0) Ur Leukocyte Esterase Negative (Negative) Urine RBC 0-5 (0-5) /hpf Urine WBC 0-5 (0-5) /hpf Ur Epithelial Cells 40-50 H (0-5) /hpf Urine Bacteria Few (FEW) /hpf Urine Mucus Not seen (FEW) /hpf Meds: Medications Generic Name Dose Route Start Last Admin Trade Name Freq PRN Reason Stop Dose Admin Dextrose/Sodium Chloride 1,000 mls @ 999 mls/hr 09/06/17 14:00 09/06/17 14:21 Dextrose 5%-Normal Saline IV 999 mls/hr ASDIRECTED MALIKA Administration Ketorolac Tromethamine 30 mg 09/06/17 14:00 09/06/17 14:28 Toradol IVPUSH 30 mg ONETIME MALIKA Administration Discontinued Medications Generic Name Dose Route Start Last Admin Trade Name Liset PRN Reason Stop Dose Admin Hydromorphone HCl 0.5 mg 09/06/17 13:47 09/06/17 14:23 Dilaudid IVPUSH 09/06/17 13:48 0.5 mg ONETIME ONE Administration Metoclopramide HCl 7.5 mg 09/06/17 13:47 09/06/17 14:22 Reglan IVPUSH 09/06/17 13:48 7.5 mg ONETIME ONE Administration - Radiology Interpretation Free Text/Narrative:: 37-year-old female presents the ED primarily with a really bad headache with associated nausea and vomiting which she equates to a migraine. Been treated with Augmentin 875 mils grams twice a day for the last 3 days for sinus infection. Associated dominant diarrhea since starting antibiotic. At present she is complaining of diffuse myalgia with fever and chills. Has had to dress warmly the last 2 days because of intermittent chills just can't get warm. No genitourinary complaints. Of note she did have a right inguinal cardiac catheter procedure on 08 August for an ablation procedure. All went well and the wound site seems to be healing adequately. She's not been able to eat or drink much the last few days. Plan IV D5 normal saline at open. Given Dilaudid 0.5 mg IV with Toradol 30 mg IV and Reglan 7.5 mg IV for headache and pain relief. Labs will be done including blood cultures 2. One view chest x-ray to be done and CT of her head to be done which will visualize most of her paranasal sinuses with. I do have some concerns that she made to be developing an infection related to the ablation procedure although it's rather remote nearly 3 weeks since the procedure was carried out. - Re-Assessments/Exams Free Text/Narrative Re-Assessment/Exam: 09/06/17 14:37 CT scan of the head is within normal limits showing no mass effect or intracranial lesions. Visualized portions of the frontal and maxillary sinuses are clear. There is some mild mucosal thickening along the ethmoid sphenoid sinus on the right side. No mastoid infection evident. Chest x -ray done portably is within normal limits showing no signs of pneumonia. It gives the impression of diffuse vascular congestion but I think is due to portable technique. 09/06/17 15:03 labs are back. White count is 8.31 with differential pending hemoglobin is 14.2 hematocrit is 40.8 platelets turn 39,000. Chemistry shows a sodium of 143 potassium low-normal at 3.5 cortical 7 bicarbonate 22. Anion gap is elevated at 17.5 CRP is 0.7 renal function and liver function are normal glucose was 89. It therefore peers or infection is most likely viral. Will give her the full liter of IV fluids and see how she feels with regards to her headache. 09/06/17 15:48 Urinalysis reveals 40-50 epithelial cells per per field but no signs of an infective process. There were 4 we could be seeing a urinary tract infection has been partially masked by Augmentin. Epithelial cells in the urine suggest kidney involvement. Patient will be discharged to home on Zofran 4 mg sublingually every 4-6 hours. For nausea relief. Clear fluid diet primarily rate Gatorade and Powerade. Motrin 600 mg every 6 hours as needed for relief of body aches pain and fever. I'm going to change her antibiotics to doxycycline 100 mg twice daily for 8 days to cover bronchitis and possible pyelonephritis. The Augmentin will be stopped due to the severe diarrhea that she has which is felt to be an adverse effect of the medication To return to hospital if not markedly improved in 36 hours time. 09/06/17 16:06 headache pain is still 5 out of 10. Will give another dose of Dilaudid 0.5 mg IV. She'll then we discharged to home with Zofran 4 mg sublingual every 4-6 hours when necessary. To discontinue Augmentin as is causing severe diarrhea doxycycline 100 mg twice daily for 8 days to replace this for bronchitis and possible urinary tract origin of infection. The differential of the white count was 71% neutrophils and no bands. Her infection still may be viral in origin. However with the amount of epithelial cells in a urinary tract and could be masked by the current Augmentin usage. She'll follow- up with her personal care for provider on Saturday. 3 days time. Departure - Departure Time of Disposition: 16:09 Disposition: Home, Self-Care 01 Condition: Fair Clinical Impression: Fever chills, Bronchitis Adverse effect of antibiotic Qualifiers: Encounter type: initial encounter Qualified Code(s): T36.95XA - Adverse effect of unspecified systemic antibiotic, initial encounter - Discharge Information Prescriptions: Doxycycline [Vibramycin] 100 mg PO Q12HR #16 cap Ondansetron [Zofran ODT] 4 mg PO Q6H #6 tab.dis Referrals: PCP,None [Primary Care Provider] - Forms: ED Department Discharge Additional Instructions: Evaluation the emergency room today in regards to acute onset of illness 5 days ago with headache and associated nausea and intermittent vomiting. Development of a cough which is somewhat productive. Treated with antibiotic Augmentin 875 mg twice daily for the last 3 days with development of significant diarrhea no real improvement in illness. Continue to have fever and chills. Lab work shows a normal white count at 8.31 and a normal differential suggesting that this may be a viral illness or course of partially treated bacterial infection. The diarrhea alone is enough reason to stop the Augmentin as it would only get worse with continuation of this drug. The urinalysis shows lots of epithelial cells suggesting possibility of a pyelonephritis that has been partially treated by antibiotics as there is no pus cells in the urine. Therefore stop the Augmentin and use doxycycline 100 mg twice daily for the next 8 days to clear up any infection in the chest or kidney. The CT of the head and maxillofacial bones did not show any evidence of significant sinus infection. He were volume depleted and he received a liter of IV fluids. Use Zofran 4 mg under the tongue every 4-6 hours necessary for relief of nausea. Motrin 600 mg every 6 hours for fever or body ache relief. Also for headache relief. Follow- up with your personal care provider on Saturday if at all possible. - My Orders Last 24 Hours: My Active Orders 09/06/17 13:48 Chest 1V Frontal [CR] Stat Blood Culture x2 Reflex Set [OM.PC] Stat 09/06/17 14:00 Dextrose 5%-0.9% NaCl [Dextrose 5%-Normal Saline] 1,000 ml IV ASDIRECTED Ketorolac [Toradol] 30 mg IVPUSH ONETIME 09/06/17 14:15 CULTURE BLOOD [BC] Stat 09/06/17 14:30 CULTURE BLOOD [BC] Stat 09/06/17 16:06 HYDROmorphone [Dilaudid] 0.5 mg IVPUSH ONETIME ONE - Assessment/Plan Last 24 Hours: My Active Orders 09/06/17 13:48 Chest 1V Frontal [CR] Stat Blood Culture x2 Reflex Set [OM.PC] Stat 09/06/17 14:00 Dextrose 5%-0.9% NaCl [Dextrose 5%-Normal Saline] 1,000 ml IV ASDIRECTED Ketorolac [Toradol] 30 mg IVPUSH ONETIME 09/06/17 14:15 CULTURE BLOOD [BC] Stat 09/06/17 14:30 CULTURE BLOOD [BC] Stat 09/06/17 16:06 HYDROmorphone [Dilaudid] 0.5 mg IVPUSH ONETIME ONE
[2017-09-06] MEDS ORDERED: Metoclopramide 10 MG/2 ML SDV IVPUSH ONE (13:47)
[2017-09-06] MEDS ORDERED: HYDROmorphone 0.5 MG/0.5 ML Syringe IVPUSH ONE ×2 (13:47→16:06)
[2017-09-06] MEDS ORDERED: Dextrose 5%-0.9% NaCl 1,000 ML IV SCH (14:00)
[2017-09-06] MEDS ORDERED: Ketorolac 30 MG/ML SDV IVPUSH SCH (14:00)
--- NOTE | 2017-09-06 14:49 | CT ---
Head CT Technique: Multiple axial sections through the brain were obtained. Intravenous contrast was not utilized. Comparison: Previous head CT study of 07/03/17. Findings: Ventricles along with basal cisterns and sulci over the convexities appear within normal limits for the patient's age. No abnormal parenchymal densities are seen. No evidence of intracranial hemorrhage. No midline shift or mass effect is seen. Bone window settings were reviewed which shows no discrete calvarial abnormality. Visualized sinuses are clear. Impression: 1. Nothing acute is appreciated on noncontrast head CT exam. Diagnostic code #1
--- NOTE | 2017-09-08 20:02 | CR ---
Chest: Portable view of the chest was obtained. Comparison: Previous chest x-ray of 07/12/17. Heart size and mediastinum are within normal limits. Lungs are clear. Bony structures are grossly intact. Impression: 1. Nothing acute is identified on portable chest x-ray. Diagnostic code #1
== END 2017-09-06 16:20 | disposition home or self-care (01) ==
LOC: JD.ED 13:08
DX: R19.7 Diarrhea, unspecified (principal); T36.0X5A Adverse effect of penicillins, initial encounter; J40 Bronchitis, not specified as acute or chronic; F17.210 Nicotine dependence, cigarettes, uncomplicated; J45.909 Unspecified asthma, uncomplicated; G43.909 Migraine, unspecified, not intractable, without status migrainosus; Z79.899 Other long term (current) drug therapy
CPT/HCPCS: 36415; 70450; 71010; 80053; 81001; 85025; 86140; 87040; 96361; 96374; 96375; 99284; J1170; J1885; J2765; J7042

== ENCOUNTER 2017-10-03 16:03 | Emergency (ER) | payer MEDICAID ==
[2017-10-03 16:15] VITALS: BP 157/82
[2017-10-03] MEDS ORDERED: HYDROmorphone 1 MG/ML Syringe IM ONE ×2 (16:32→17:27)
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
[2017-10-03] MEDS ORDERED: Ketorolac 60 MG/2 ML SDV IM ONE (17:27)
== END 2017-10-03 18:43 | disposition home or self-care (01) ==
LOC: JD.ED 16:03
DX: M25.562 Pain in left knee (principal); J45.909 Unspecified asthma, uncomplicated; F41.9 Anxiety disorder, unspecified; F17.210 Nicotine dependence, cigarettes, uncomplicated; Z79.899 Other long term (current) drug therapy
CPT/HCPCS: 96372; 99283; J1170; J1885

== ENCOUNTER 2017-10-28 18:49 | Emergency (ER) | payer MEDICAID ==
[2017-10-28 19:00] VITALS: BP 162/103
[2017-10-28] MEDS ORDERED: Acetaminophen/HYDROcodone 325-5 MG Tab PO ONE (19:32)
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
--- NOTE | 2017-10-29 07:18 | CR ---
Left knee: Four views of the left knee were obtained. Comparison: No prior knee radiograph, previous left knee MRI dated 05/07/17 is available. Mild medial joint space narrowing is seen. Lateral joint space is preserved. No joint effusion is seen. No acute fracture or other bony abnormality is identified. Impression: 1. Mild medial joint space narrowing. Nothing acute is appreciated on left knee study. Diagnostic code #2
== END 2017-10-28 20:27 | disposition home or self-care (01) ==
LOC: JD.ED 18:49
DX: S83.92XA Sprain of unspecified site of left knee, initial encounter (principal); Z79.899 Other long term (current) drug therapy; F17.210 Nicotine dependence, cigarettes, uncomplicated; X50.1XXA Overexertion from prolonged static or awkward postures, initial encounter
CPT/HCPCS: 73564; 99283; A9270

== ENCOUNTER 2017-11-08 17:05 | Emergency (ER) | payer MEDICAID ==
[2017-11-08 17:34] VITALS: BP 140/90
[2017-11-08] MEDS ORDERED: Ketorolac 30 MG/ML SDV IM ONE (18:42)
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
== END 2017-11-08 18:55 | disposition home or self-care (01) ==
LOC: JD.ED 17:05
DX: G89.29 Other chronic pain (principal); M25.562 Pain in left knee; F17.210 Nicotine dependence, cigarettes, uncomplicated; I48.91 Unspecified atrial fibrillation; Z79.899 Other long term (current) drug therapy
CPT/HCPCS: 96372; 99283; J1885; 99282

== ENCOUNTER 2017-12-22 14:18 | Emergency (ER) | payer MEDICAID ==
[2017-12-22 14:29] VITALS: BP 141/92
--- NOTE | 2017-12-22 15:04 | EDM.PDOC ---
ED HPI GENERAL MEDICAL PROBLEM - General Chief Complaint: Lower Extremity Injury/Pain Stated Complaint: KNEE PAIN AND RASH Time Seen by Provider: 12/22/17 14:33 Source of Information: Reports: Patient, RN Notes Reviewed - History of Present Illness INITIAL COMMENTS - FREE TEXT/NARRATIVE: 37-year-old female comes in with severe left knee pain. Has Had quite severe left knee pain for years and apparently has quite severe degenerative arthritis even at her very young age. States she is scheduled for knee replacement in about 8 or 9 days. She is now off of her anti-inflammatory medicine because of the upcoming knee surgery. She does take 50 mg tramadol twice a day. She does take occasional hydrocodone but is out with her last prescription having been filled around a month ago for 20 tabs. She states the pain is "unbearable". She is already using crutches to keep at least some of the stress off of her leg and knee. No recent injury. Left Knee Pain Score (Numeric/FACES): 9 - Related Data Allergies Allergy/AdvReac Type Severity Reaction Status Date / Time No Known Allergies Allergy Verified 10/03/17 16:09 Home Meds: Home Meds Diltiazem HCl [Diltiazem 24Hr ER] 240 mg PO DAILY 05/31/15 [History] Gabapentin [Neurontin] 800 mg PO QID 05/31/15 [History] tiZANidine [Zanaflex] 4 mg PO QID PRN 05/31/15 [History] Albuterol [Proventil HFA] 2 puff INH QID PRN #1 inhaler 06/26/16 [Rx] Atenolol 6.25 mg PO DAILY 07/22/16 [History] hydrOXYzine HCl [Atarax] 50 mg PO QID PRN 07/27/16 [History] medroxyPROGESTERone Acetate [Depo-Provera] 150 mg IM ASDIRECTED 09/11/16 [ History] LORazepam [Ativan] 1 tab PO DAILY PRN 12/04/16 [History] Sertraline [Zoloft] 100 mg PO BID 12/04/16 [History] Zolpidem Tartrate [Ambien] 1 tab PO BEDTIME PRN 12/04/16 [History] traZODone 1 tab PO BEDTIME 12/04/16 [History] Apixaban [Eliquis] 5 mg PO BID 07/03/17 [History] Albuterol Sulfate 1.25 mg IH Q4H PRN 09/06/17 [History] Diltiazem HCl [Cartia Xt] 180 mg PO DAILY 09/06/17 [History] Ondansetron [Zofran ODT] 4 mg PO Q6H #6 tab.dis 09/06/17 [Rx] SUMAtriptan [Imitrex] 100 mg PO ASDIRECTED 09/06/17 [History] Topiramate [Topiramate ER] 100 mg PO BEDTIME 09/06/17 [History] traMADol [Ultram] 100 mg PO Q6H 10/03/17 [History] Hydrocodone/Acetaminophen [[place] 5-325 Tablet] 1 each PO Q8HR PRN #10 tablet [Rx] Past Medical History HEENT History: Reports: Other (See Below) Other HEENT History: wears dentures Cardiovascular History: Reports: Afib Other Cardiovascular History: atrial fib and flutter. 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: Musculoskeletal History: Reports: Other (See Below) Other Musculoskeletal History: hand weakness, carpal tunnel, muscle spasm Neurological History: Reports: CVA, Migraines, TIA Psychiatric History: Reports: Addiction, Anxiety Endocrine/Metabolic History: Reports: Obesity/BMI 30+ Dermatologic History: Reports: Other (See Below) Other Dermatologic History: r hand burn - Infectious Disease History Infectious Disease History: Reports: Chicken Pox - Past Surgical History HEENT Surgical History: Reports: Tonsillectomy Cardiovascular Surgical History: Reports: Cardiac Ablation Respiratory Surgical History: Reports: None GI Surgical History: Reports: Cholecystectomy Female Surgical History: Reports: Section Musculoskeletal Surgical History: Reports: Carpal Tunnel Social & Family History - Family History Family Medical History: Noncontributory - Tobacco Use Smoking Status *Q: Current Every Day Smoker Years of Tobacco use: 18 Packs/Tins Daily: 1 Used Tobacco, but Quit: No Second Hand Smoke Exposure: No - Caffeine Use Caffeine Use: Reports: Soda Other Caffeine Use: Daily - Recreational Drug Use Recreational Drug Use: No - Living Situation & Occupation Living situation: Reports: , with Family (2 kids) Occupation: Unemployed Review of Systems - Review of Systems Review Of Systems: See Below Constitutional: Denies: Chills, Fever Mouth/Throat: Reports: No Symptoms Respiratory: Denies: Shortness of Breath Cardiovascular: Denies: Chest Pain GI/Abdominal: Denies: Abdominal Pain, Nausea, Vomiting Musculoskeletal: Reports: Joint Pain (Left knee) Skin: Denies: Erythema Neurological: Reports: No Symptoms ED EXAM, GENERAL - Physical Exam Exam: See Below General Appearance: Alert, Mild Distress Throat/Mouth: Normal Inspection Head: Atraumatic Neck: Supple, Full Range of Motion Respiratory/Chest: No Respiratory Distress Cardiovascular: Regular Rate, Rhythm Extremities: Other (Moderate diffuse tenderness of the left knee, she does have pain with motion, the knee is not warm or erythematous, no visible effusion at this time) Course - Vital Signs Last Recorded V/S: Last Vital Signs Temp 98.1 F 12/22/17 14:28 Pulse 77 12/22/17 14:28 Resp 20 12/22/17 14:28 BP 141/92 H 12/22/17 14:28 Pulse Ox 99 12/22/17 14:28 - Re-Assessments/Exams Free Text/Narrative Re-Assessment/Exam: 12/22/17 17:42 It appears that she is not had hydrocodone prescribed for a month or more. 20 tablets were given with the last prescription. Therefore she is not taking large quantity of that. Have prescribed 10 tablets. I suggested she stretch that out by taking half a tablet 2-3 times daily along with a 500 mg Tylenol. Discharge instructions as documented. Departure - Departure Time of Disposition: 15:17 Disposition: Home, Self-Care 01 Condition: Fair Clinical Impression: Knee pain, left Qualifiers: Chronicity: chronic Qualified Code(s): M25.562 - Pain in left knee - Discharge Information Prescriptions: Hydrocodone/Acetaminophen [[place] 5-325 Tablet] 1 each PO Q8HR PRN #10 tablet PRN Reason: Pain Instructions: Knee Pain Referrals: Marly Valdez PA [Primary Care Provider] - Forms: ED Department Discharge Additional Instructions: continue to use crutchs, rest and elevate leg as much as possible, continue current meds, I will prescribed 10 hydrocodone, consider taking 1/2 tablet hydrocodone with 500 mg tylenol aobut 3 times daily to help that last longer for you. Follow up clinic as needed
== END 2017-12-22 15:35 | disposition home or self-care (01) ==
LOC: JD.ED 14:18
DX: M25.562 Pain in left knee (principal); F17.210 Nicotine dependence, cigarettes, uncomplicated; F41.9 Anxiety disorder, unspecified; Z79.899 Other long term (current) drug therapy
CPT/HCPCS: 99283

== ENCOUNTER 2018-04-01 17:32 | Emergency (ER) | payer MEDICAID ==
[2018-04-01 17:50] VITALS: BP 123/80
[2018-04-01] MEDS ORDERED: HYDROmorphone 0.5 MG/0.5 ML SYRINGE IVPUSH ONE (18:33)
[2018-04-01] MEDS ORDERED: Sodium Chloride 0.9% 10 ML Syringe FLUSH PRN (18:33)
--- NOTE | 2018-04-01 18:40 | EDM.PDOC ---
ED HPI GENERAL MEDICAL PROBLEM - General Chief Complaint: Chest Pain Stated Complaint: KNEE PAIN & CHEST PAIN Time Seen by Provider: 04/01/18 18:12 Source of Information: Reports: Patient History Limitations: Reports: No Limitations - History of Present Illness INITIAL COMMENTS - FREE TEXT/NARRATIVE: Patient is a 37-year-old female with a history of A. fib on Eliquis, Migraines, palpitations, chronic left knee pain, and anxiety/depression. Patient states for the past day she's been experiencing stabbing chest discomfort to the left sternal border superior aspect. Pain is described as severe in nature rated a 9 out of 10. Worsened with stress, palpation, and taking a deep breath. This has been present on and off for the last 4 months. Presents today complaining of increasing shortness of breath with no cough. She's felt warm at times with no documented fever upon admission to the ED her temperature is 100.1. Cough is nonproductive. She states breathing is worse with exertion. She complains of chronic pain to the left anterior knee. 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 Patient has had ablation for A. fib August 08, 2017. She denies any nausea/vomiting, sinus congestion, ear pain, postnasal drip, sore throat, abdominal pain, dysuria, redness to the left knee, swelling to the left knee, pain to the lower aspect of her legs posteriorly. She has no history of DVT or PE. She states pain to the left knee as a 9 out of 10 which is chronic. Patient smokes approximately one pack per day or more. Denies any alcohol or recreational drug use. Patient denies being . Current medications include trazodone, tramadol, Zanaflex, Depo-Provera, hydroxyzine, Ambien, topiramate, Zoloft, Imitrex, Zofran, Ativan, [place], gabapentin, cardiac, calcium, atenolol, Eliquis, and albuterol. Patient had 3 C-sections. 2 carpal tunnel. Cholecystectomy. Cardiac Ablation. Chest Pain Score (Numeric/FACES): 8 Left Knee Pain Score (Numeric/FACES): 9 - Related Data Allergies Allergy/AdvReac Type Severity Reaction Status Date / Time No Known Allergies Allergy Verified 10/03/17 16:09 Home Meds: Home Meds Gabapentin [Neurontin] 800 mg PO QID 05/31/15 [History] tiZANidine [Zanaflex] 4 mg PO QID PRN 05/31/15 [History] Albuterol [Proventil HFA] 2 puff INH QID PRN #1 inhaler 06/26/16 [Rx] Atenolol 6.25 mg PO DAILY 07/22/16 [History] hydrOXYzine HCl [Atarax] 50 mg PO QID PRN 07/27/16 [History] medroxyPROGESTERone Acetate [Depo-Provera] 150 mg IM ASDIRECTED 09/11/16 [ History] LORazepam [Ativan] 1 tab PO DAILY PRN 12/04/16 [History] Sertraline [Zoloft] 100 mg PO BID 12/04/16 [History] Zolpidem Tartrate [Ambien] 1 tab PO BEDTIME PRN 12/04/16 [History] traZODone 1 tab PO BEDTIME 12/04/16 [History] Apixaban [Eliquis] 5 mg PO BID 07/03/17 [History] Diltiazem HCl [Cartia Xt] 180 mg PO DAILY 09/06/17 [History] Ondansetron [Zofran ODT] 4 mg PO Q6H #6 tab.dis 09/06/17 [Rx] SUMAtriptan [Imitrex] 100 mg PO ASDIRECTED 09/06/17 [History] Topiramate [Topiramate ER] 100 mg PO BEDTIME 09/06/17 [History] traMADol [Ultram] 100 mg PO Q6H 10/03/17 [History] Hydrocodone/Acetaminophen [[place] 5-325 Tablet] 1 each PO Q8HR PRN #10 tablet [Rx] Past Medical History HEENT History: Reports: Other (See Below) Other HEENT History: wears dentures Cardiovascular History: Reports: Afib Other Cardiovascular History: atrial fib and flutter. 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 History: Musculoskeletal History: Reports: Other (See Below) Other Musculoskeletal History: hand weakness, carpal tunnel, muscle spasm Neurological History: Reports: CVA, Migraines, TIA, Other (See Below) Other Neuro History: states has had "mini strokes." Psychiatric History: Reports: Addiction, Anxiety Endocrine/Metabolic History: Reports: Obesity/BMI 30+ Hematologic History: Reports: Anemia Dermatologic History: Reports: Other (See Below) Other Dermatologic History: r hand burn - Infectious Disease History Infectious Disease History: Reports: Chicken Pox - Past Surgical History HEENT Surgical History: Reports: Tonsillectomy Cardiovascular Surgical History: Reports: Cardiac Ablation Respiratory Surgical History: Reports: None GI Surgical History: Reports: Cholecystectomy Female Surgical History: Reports: Section Musculoskeletal Surgical History: Reports: Carpal Tunnel Social & Family History - Family History Family Medical History: Noncontributory - Tobacco Use Smoking Status *Q: Current Every Day Smoker Years of Tobacco use: 18 Packs/Tins Daily: 1 Second Hand Smoke Exposure: No - Caffeine Use Caffeine Use: Reports: Soda Other Caffeine Use: Daily - Recreational Drug Use Recreational Drug Use: No - Living Situation & Occupation Living situation: Reports: , with Family (2 kids) Occupation: Unemployed ED ROS GENERAL - Review of Systems Review Of Systems: ROS reveals no pertinent complaints other than HPI. ED EXAM, GENERAL - Physical Exam Exam: See Below Exam Limited By: No Limitations General Appearance: Alert, WD/WN, Mild Distress Eye Exam: Bilateral Eye: PERRL Ears: Hearing Grossly Normal Nose: Normal Inspection Throat/Mouth: Normal Voice, No Airway Compromise Neck: Normal Inspection, Supple, Non-Tender Respiratory/Chest: No Respiratory Distress, Lungs Clear, Normal Breath Sounds, No Accessory Muscle Use, Other (tenderness noted to the left sternal superior border worsened with palpation. ) Cardiovascular: Normal Peripheral Pulses, No Murmur (no obvious), Tachycardia Peripheral Pulses: 2+: Posterior Tibial (L), Posterior Tibial (R), 4+: Radial (L ), Radial (R) GI/Abdominal: Normal Bowel Sounds, Soft, Non-Tender, No Organomegaly, No Distention Back Exam: Normal Inspection Extremities: Normal Inspection, Non-Tender (posterior), No Pedal Edema. No: Joint Swelling, Increased Warmth, Redness Neurological: Alert, Oriented, CN II-XII Intact, Normal Cognition, No Motor/ Sensory Deficits Psychiatric: Normal Affect, Normal Mood Skin Exam: Warm, Dry, Intact, Normal Color, No Rash Course - Vital Signs Last Recorded V/S: Last Vital Signs Temp 100.1 F 04/01/18 17:40 Pulse 110 H 04/01/18 17:40 Resp 17 04/01/18 17:40 BP 123/80 04/01/18 17:40 Pulse Ox 99 04/01/18 17:40 - Orders/Labs/Meds Labs: Laboratory Tests 04/01/18 04/01/18 04/01/18 Range/Units 18:45 18:45 18:45 WBC 9.84 (3.98-10.04) K/mm3 RBC 4.99 (3.98-5.22) M/mm3 Hgb 14.0 (11.2-15.7) gm/L Hct 42.3 (34.1-44.9) % MCV 84.8 (79.4-94.8) fl MCH 28.1 (25.6-32.2) pg MCHC 33.1 (32.2-35.5) g/dl RDW Std Deviation 41.7 (36.4-46.3) fL Plt Count 313 (182-369) K/mm3 MPV 11.8 (9.4-12.3) fl Neutrophils % (Manual) 70 H (40-60) % Band Neutrophils % 1 (0-10) % Lymphocytes % (Manual) 22 (20-40) % Atypical Lymphs % 0 % Monocytes % (Manual) 4 (2-10) % Eosinophils % (Manual) 2 (0.7-5.8) % Basophils % (Manual) 1 (0.1-1.2) Platelet Estimate Adequate RBC Morph Comment Normal D-Dimer, Quantitative 0.22 (0.19-0.50) mg/L Sodium 143 (136-145) mEq/L Potassium 4.1 (3.5-5.1) mEq/L Chloride 110 H (98-107) mEq/L Carbon Dioxide 19 L (21-32) mEq/L Anion Gap 18.1 H (5-15) BUN 15 (7-18) mg/dL Creatinine 1.1 H (0.55-1.02) mg/dL Est Cr Clr Drug Dosing 59.88 mL/min Estimated GFR (MDRD) 56 (>60) mL/min BUN/Creatinine Ratio 13.6 L (14-18) Glucose 95 (74-106) mg/dL Calcium 9.4 (8.5-10.1) mg/dL Magnesium 1.9 (1.8-2.4) mg/dl Total Bilirubin 0.2 (0.2-1.0) mg/dL AST 13 L (15-37) U/L ALT 27 (14-59) U/L Alkaline Phosphatase 107 (46-116) U/L Troponin I < 0.017 (0.00-0.056) ng/mL C-Reactive Protein 0.7 (<1.0) mg/dL Total Protein 7.3 (6.4-8.2) g/dl Albumin 4.1 (3.4-5.0) g/dl Globulin 3.2 gm/dL Albumin/Globulin Ratio 1.3 (1-2) TSH 3rd Generation 1.071 (0.358-3.74) uIU/mL Urine Color (Yellow) Urine Appearance (Clear) Urine pH (5.0-8.0) Ur Specific [place] (1.005-1.030) Urine Protein (Negative) Urine Glucose (UA) (Negative) Urine Ketones (Negative) Urine Occult Blood (Negative) Urine Nitrite (Negative) Urine Bilirubin (Negative) Urine Urobilinogen (0.2-1.0) Ur Leukocyte Esterase (Negative) Urine RBC (0-5) /hpf Urine WBC (0-5) /hpf Ur Epithelial Cells (0-5) /hpf Urine Bacteria (FEW) /hpf Urine Mucus (FEW) /hpf Urine Opiates Screen (NEGATIVE) Ur Buprenorphine Scrn (NEGATIVE) Ur Oxycodone Screen (NEGATIVE) Urine Methadone Screen (NEGATIVE) Ur Propoxyphene Screen (NEGATIVE) Ur Barbiturates Screen (NEGATIVE) Ur Tricyclics Screen (NEGATIVE) Ur Phencyclidine Scrn (NEGATIVE) Ur Amphetamine Screen (NEGATIVE) U Methamphetamines Scrn (NEGATIVE) U Benzodiazepines Scrn (NEGATIVE) U Cocaine Metab Screen (NEGATIVE) U Marijuana (THC) Screen (NEGATIVE) 04/01/18 04/01/18 Range/Units 18:50 18:50 WBC (3.98-10.04) K/mm3 RBC (3.98-5.22) M/mm3 Hgb (11.2-15.7) gm/L Hct (34.1-44.9) % MCV (79.4-94.8) fl MCH (25.6-32.2) pg MCHC (32.2-35.5) g/dl RDW Std Deviation (36.4-46.3) fL Plt Count (182-369) K/mm3 MPV (9.4-12.3) fl Neutrophils % (Manual) (40-60) % Band Neutrophils % (0-10) % Lymphocytes % (Manual) (20-40) % Atypical Lymphs % % Monocytes % (Manual) (2-10) % Eosinophils % (Manual) (0.7-5.8) % Basophils % (Manual) (0.1-1.2) Platelet Estimate RBC Morph Comment D-Dimer, Quantitative (0.19-0.50) mg/L Sodium (136-145) mEq/L Potassium (3.5-5.1) mEq/L Chloride (98-107) mEq/L Carbon Dioxide (21-32) mEq/L Anion Gap (5-15) BUN (7-18) mg/dL Creatinine (0.55-1.02) mg/dL Est Cr Clr Drug Dosing mL/min Estimated GFR (MDRD) (>60) mL/min BUN/Creatinine Ratio (14-18) Glucose (74-106) mg/dL Calcium (8.5-10.1) mg/dL Magnesium (1.8-2.4) mg/dl Total Bilirubin (0.2-1.0) mg/dL AST (15-37) U/L ALT (14-59) U/L Alkaline Phosphatase (46-116) U/L Troponin I (0.00-0.056) ng/mL C-Reactive Protein (<1.0) mg/dL Total Protein (6.4-8.2) g/dl Albumin (3.4-5.0) g/dl Globulin gm/dL Albumin/Globulin Ratio (1-2) TSH 3rd Generation (0.358-3.74) uIU/mL Urine Color Light yellow (Yellow) Urine Appearance Clear (Clear) Urine pH 6.5 (5.0-8.0) Ur Specific [place] > or = 1.030 (1.005-1.030) Urine Protein Negative (Negative) Urine Glucose (UA) Negative (Negative) Urine Ketones Negative (Negative) Urine Occult Blood Negative (Negative) Urine Nitrite Negative (Negative) Urine Bilirubin Negative (Negative) Urine Urobilinogen 0.2 (0.2-1.0) Ur Leukocyte Esterase Negative (Negative) Urine RBC Not seen (0-5) /hpf Urine WBC 0-5 (0-5) /hpf Ur Epithelial Cells 0-5 (0-5) /hpf Urine Bacteria Not seen (FEW) /hpf Urine Mucus Not seen (FEW) /hpf Urine Opiates Screen Negative (NEGATIVE) Ur Buprenorphine Scrn Negative (NEGATIVE) Ur Oxycodone Screen Presumptive positive H (NEGATIVE) Urine Methadone Screen Negative (NEGATIVE) Ur Propoxyphene Screen Negative (NEGATIVE) Ur Barbiturates Screen Negative (NEGATIVE) Ur Tricyclics Screen Negative (NEGATIVE) Ur Phencyclidine Scrn Negative (NEGATIVE) Ur Amphetamine Screen Negative (NEGATIVE) U Methamphetamines Scrn Negative (NEGATIVE) U Benzodiazepines Scrn Negative (NEGATIVE) U Cocaine Metab Screen Negative (NEGATIVE) U Marijuana (THC) Screen Negative (NEGATIVE) Meds: Medications Discontinued Medications Generic Name Dose Route Start Last Admin Trade Name Freq PRN Reason Stop Dose Admin Hydromorphone HCl 0.5 mg 04/01/18 18:33 04/01/18 19:29 Dilaudid IVPUSH 04/01/18 18:34 0.5 mg ONETIME ONE Administration Sodium Chloride 1,000 mls @ 150 mls/hr 04/01/18 18:45 04/01/18 20:05 Normal Saline IV 999 mls/hr ASDIRECTED MALIKA Infusion Ketorolac Tromethamine 30 mg 04/01/18 20:42 04/01/18 20:49 Toradol IVPUSH 04/01/18 20:43 30 mg ONETIME ONE Administration Sodium Chloride 10 ml 04/01/18 18:33 04/01/18 19:29 Saline Flush FLUSH 10 ml ASDIRECTED PRN Administration Keep Vein Open - Re-Assessments/Exams Free Text/Narrative Re-Assessment/Exam: IV established with normal saline 150 mL per hour. Ordered Dilaudid 0.5 mg IVP. Initial labs and studies include CBC, chem 14, CRP, blood cultures 2, d-dimer, drug screen, magnesium, troponin, TSH, UA, EKG, and chest x-ray. Chest x-ray impression:NO acute findings noted. Final interpretation is pending. Reviewed with Dr. Marroquin. EKG impression: Sinus tachycardia rate of [address] changes[address] No ST elevation [place]. Labs reviewed: CBC essentially normal differential pending. D-dimer 0.22 within normal limits. Sodium 143, potassium 4.1, CO2 19, AG 18.3, crit 1.1, glucose 95 , troponin less than 0.017, CRP 0.7, TSH 1.071, UA negative, drug tox positive for oxycodone. 04/01/18 21:13 BP 136/80 HR 95. Patients pain has improved with the above therapies. Will discharge patient home with instructions as documented. Patient is requesting narcotic pain medications for knee discomfort. This is a chronic condition and further pain management can be managed by PCP and or ortho provider. Departure - Departure Time of Disposition: 21:14 Disposition: Home, Self-Care 01 Condition: Good Clinical Impression: Acute chest wall pain, Chronic pain of right knee Instructions: Chest Wall Pain, [id number], Chest Wall Pain Referrals: Marly Valdez PA [Primary Care Provider] - Forms: ED Department Discharge Additional Instructions: Treatment for chest wall pain is Tylenol and ibuprofen in alternating fashion. May apply warm compresses to affected area. Refrain from any activities that cause worsening pain. See your primary care provider in the next 3-5 days for reevaluation. For chronic knee pain please see your orthopedic surgeon for further treatment. Return to the ED if you develop any new or worsening symptoms. Do not drive this evening since receiving a sedative medication while in the ED.
[2018-04-01] MEDS ORDERED: Sodium Chloride 0.9% 1,000 ML IV SCH (18:45)
[2018-04-01] MEDS ORDERED: Ketorolac 30 MG/ML SDV IVPUSH ONE (20:42)
--- NOTE | 2018-04-02 07:58 | CR ---
Chest: Frontal view of the chest was obtained. Comparison: Prior chest x-ray of 02/25/18. Heart size and mediastinum are normal. Lungs are clear with no acute parenchymal change. Surgical clips are seen from prior cholecystectomy. Bony structures are grossly intact. Impression: 1. Incidental findings. Nothing acute is appreciated on frontal chest x-ray. Diagnostic code #2
== END 2018-04-01 21:20 | disposition home or self-care (01) ==
LOC: JD.ED 17:32
DX: S82.002A Unspecified fracture of left patella, initial encounter for closed fracture (principal); X50.9XXA Other and unspecified overexertion or strenuous movements or postures, initial encounter
CPT/HCPCS: 36415; 71045; 80053; 80306; 81001; 83735; 84443; 84484; 85025; 85379; 86140; 87040; 93005; 96361; 96374; 96375; 99285; J1170; J1885; J7040; J7050; 99284

== ENCOUNTER 2018-07-02 09:08 | Emergency (ER) | payer MEDICAID ==
[2018-07-02] MEDS ORDERED: Ketorolac 30 MG/ML SDV IVPUSH ONE (10:46)
[2018-07-02] MEDS ORDERED: Sodium Chloride 0.9% 10 ML Syringe FLUSH PRN (10:46)
[2018-07-02] MEDS ORDERED: diphenhydrAMINE 50 MG/ML SDV IVPUSH ONE (10:46)
[2018-07-02] MEDS ORDERED: Sodium Chloride 0.9% 1,000 ML IV ONE (10:46)
[2018-07-02] MEDS ORDERED: Ondansetron 4 MG/2 ML SDV IVPUSH ONE (10:46)
[2018-07-02] MEDS ORDERED: Metoclopramide 10 MG/2 ML SDV IVPUSH ONE (10:46)
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
--- NOTE | 2018-07-02 12:26 | PCM.SN ---
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 Ultrasound machine used for vascular access visualization. 1x attempt using 20 G 2" angiocath at volar surface of right upper forearm under direct ultrasound visualization. Good blood return, easy catheter thread in, easy saline flush. Catheter secured. procedure start 1200 procedure end 1215 Jaun Stroud CRNA
[2018-07-02 13:06] VITALS: BP 117/80
== END 2018-07-02 13:05 | disposition home or self-care (01) ==
LOC: JD.ED 09:08
DX: G44.209 Tension-type headache, unspecified, not intractable (principal); R53.82 Chronic fatigue, unspecified; E66.9 Obesity, unspecified; F17.210 Nicotine dependence, cigarettes, uncomplicated; Z79.899 Other long term (current) drug therapy
CPT/HCPCS: 36415; 80053; 83735; 84484; 85025; 93005; 96361; 96374; 96375; 99284; J1200; J1885; J2405; J2765; J7040; J7050

== ENCOUNTER 2019-02-13 10:36 | Emergency (ER) | payer MEDICAID ==
[2019-02-13 10:51] VITALS: BP 122/82
[2019-02-13] MEDS ORDERED: HYDROmorphone 1 MG/ML Syringe IM ONE (11:26)
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
== END 2019-02-13 11:51 | disposition home or self-care (01) ==
LOC: JD.ED 10:36
DX: M25.562 Pain in left knee (principal); I48.91 Unspecified atrial fibrillation; F17.210 Nicotine dependence, cigarettes, uncomplicated; Z79.899 Other long term (current) drug therapy
CPT/HCPCS: 96372; 99283; J1170

== ENCOUNTER 2019-07-23 17:10 | Emergency (ER) | payer MEDICAID ==
[2019-07-23 17:45] VITALS: BP 119/88
--- NOTE | 2019-07-23 18:08 | EDM.PDOC ---
ED HPI GENERAL MEDICAL PROBLEM - General Chief Complaint: Lower Extremity Injury/Pain Stated Complaint: LEFT KNEE PAIN Time Seen by Provider: 07/23/19 17:54 Source of Information: Reports: Patient History Limitations: Reports: No Limitations - History of Present Illness INITIAL COMMENTS - FREE TEXT/NARRATIVE: 38-year-old female presents for evaluation and treatment of left knee pain. This is a chronic problem and she's had this for over 2 years. Has been seen her primary care provider, Brandi Mckeon, as well as several different orthopedic providers. She was seeing Dr. Wallace and Amarilis Alford but then saw Dr. Emmanuel and Dr. Brown. she plans to follow-up with Dr. Wallace's office again in the near future but she does not appointment at this time. She states that she was told she needs a repeat knee replacement . Was supposed to have this done on two different occasions but both times the surgery was canceled. At this time she is on tramadol/acetaminophen, diclofenac cream and lidocaine patches. She states that the pain is too severe she has difficulty working and managing her kids due to the significant for left knee pain. She denies any recent trauma. She states that she is twisted on several occasions in the last month. She states that she did fall about a month ago but does not feel there is anything broken. Her MRIs were reviewed. Most recently she had one in February 2019. No ligamentous damage, decreased cartilage. 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 Left Knee Pain Score (Numeric/FACES): 9 - Related Data Allergies Allergy/AdvReac Type Severity Reaction Status Date / Time No Known Allergies Allergy Verified 07/23/19 17:45 Home Meds: Home Meds Gabapentin [Neurontin] 800 mg PO QID 05/31/15 [History] medroxyPROGESTERone Acetate [Depo-Provera] 150 mg IM ASDIRECTED 09/11/16 [ History] Zolpidem Tartrate [Ambien] 10 mg PO BEDTIME PRN 12/04/16 [History] traZODone 100 mg PO BEDTIME 12/04/16 [History] Apixaban [Eliquis] 5 mg PO BID 07/03/17 [History] Diltiazem HCl [Cartia Xt] 240 mg PO DAILY 09/06/17 [History] Ondansetron [Zofran ODT] 4 mg PO Q6H #6 tab.dis 09/06/17 [Rx] SUMAtriptan [Imitrex] 100 mg PO ASDIRECTED 09/06/17 [History] Topiramate [Topiramate ER] 100 mg PO BEDTIME 09/06/17 [History] Ibuprofen 600 mg PO QID PRN #40 tablet 06/20/18 [Rx] Diclofenac Sodium [Voltaren 1% Gel] 1 applic TOP QID PRN 09/26/18 [History] Lidocaine 5% [Lidoderm 5%] 1 patch TOP Q12HR 09/26/18 [History] traMADol [Ultram] 37.5 mg PO Q6H PRN 07/23/19 [History] Past Medical History HEENT History: Reports: Other (See Below) Other HEENT History: wears dentures Cardiovascular History: Reports: Afib Other Cardiovascular History: atrial fib and flutter. 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 FEEDER History: Musculoskeletal History: Reports: Other (See Below) Other Musculoskeletal History: hand weakness, carpal tunnel, muscle spasm Neurological History: Reports: CVA, Migraines, TIA, Other (See Below) Other Neuro History: states has had "mini strokes." Psychiatric History: Reports: Addiction, Anxiety Endocrine/Metabolic History: Reports: Obesity/BMI 30+ Hematologic History: Reports: Anemia Dermatologic History: Reports: Other (See Below) Other Dermatologic History: r hand burn - Infectious Disease History Infectious Disease History: Reports: Chicken Pox - Past Surgical History HEENT Surgical History: Reports: Oral Surgery, Tonsillectomy Cardiovascular Surgical History: Reports: Cardiac Ablation Respiratory Surgical History: Reports: None GI Surgical History: Reports: Cholecystectomy Female Surgical History: Reports: Section Musculoskeletal Surgical History: Reports: Carpal Tunnel Social & Family History - Family History Family Medical History: Noncontributory - Tobacco Use Second Hand Smoke Exposure: No - Caffeine Use Caffeine Use: Reports: None Other Caffeine Use: Daily - Recreational Drug Use Recreational Drug Use: No - Living Situation & Occupation Living situation: Reports: , with Family (2 kids) Occupation: Unemployed Review of Systems - Review of Systems Review Of Systems: See Below Musculoskeletal: Reports: Joint Pain (left knee pain) Neurological: Reports: Difficulty Walking ED EXAM, GENERAL - Physical Exam Exam: See Below Exam Limited By: No Limitations General Appearance: Alert, WD/WN, No Apparent Distress, Obese Respiratory/Chest: No Respiratory Distress Cardiovascular: Normal Peripheral Pulses Peripheral Pulses: 3+: Posterior Tibial (L), Posterior Tibial (R), Dorsalis Pedis (L), Dorsalis Pedis (R) Extremities: Normal Inspection (No obvious abnormalities), Non-Tender, Other ( Special testing deferred due to pain, no joint effusion appreciated, range of motion testing deferred due to pain) Neurological: Alert, Oriented, Normal Cognition Psychiatric: Normal Affect, Normal Mood Skin Exam: Warm, Dry, Normal Color Course - Vital Signs Last Recorded V/S: Last Vital Signs Temp 97.8 F 07/23/19 17:31 Pulse 74 07/23/19 17:31 Resp 20 07/23/19 17:31 BP 119/88 07/23/19 17:31 Pulse Ox 99 07/23/19 17:31 - Re-Assessments/Exams Free Text/Narrative Re-Assessment/Exam: 07/23/19 18:06 Patient was searched on the [place] prescription drug registry. She has received 143 prescriptions in the last 2 years from 12 different prescribers. She was educated that the ER does not do chronic pain management. She needs to follow-up with her orthopedic provider or her primary care provider for pain management. She expresses understanding. Offered an x-ray but she declined. We will discharge her home. Discharge instructions as documented. Departure - Departure Time of Disposition: 18:05 Disposition: Home, Self-Care 01 Condition: Good Clinical Impression: Chronic knee pain - Discharge Information *PRESCRIPTION DRUG MONITORING PROGRAM REVIEWED*: Yes *COPY OF PRESCRIPTION DRUG MONITORING REPORT IN PATIENT EVERARDO: No Referrals: Cinthya Martinez PA-C [Primary Care Provider] - Forms: ED Department Discharge Additional Instructions: Unfortunately, the ER is unable to manage chronic pain. you need to follow-up with either your primary care provider or your orthopedic provider for further pain management. In the meantime I recommend you continue to take the medications prescribed to you. Recommend reducing usage with crutches, ice and elevating. please return to the ER if our symptoms change or worsen.
== END 2019-07-23 18:15 | disposition home or self-care (01) ==
LOC: JD.ED 17:10
DX: G89.29 Other chronic pain (principal); M25.562 Pain in left knee; I48.91 Unspecified atrial fibrillation; I48.92 Unspecified atrial flutter; F41.9 Anxiety disorder, unspecified; E66.9 Obesity, unspecified; Z68.38 Body mass index [BMI] 38.0-38.9, adult; Z86.2 Personal history of diseases of the blood and blood-forming organs and certain disorders involving the immune mechanism; Z79.899 Other long term (current) drug therapy
CPT/HCPCS: 99283

== ENCOUNTER 2019-10-29 06:15 | Day surgery (SDC) | payer MEDICAID ==
[~2019-10-29 06:15] MED LIST: EPINEPHrine 1 MG/ML 30 ML MDV SCH; Lactated Ringers 1,000 ML IV SCH; Lidocaine 1%/Sod Bicarbonate in NS 8.4% 1 ML Syringe IDERM PRN; Sodium Chloride 0.9% 10 ML Syringe FLUSH PRN
[2019-10-29] MEDS ORDERED: Bupivacaine 0.25% 10 ML SDV ONE (06:37)
[2019-10-29] MEDS ORDERED: Albuterol 0.083% 2.5 MG/3 ML Neb Soln NEB ONE (06:39)
[2019-10-29] MEDS ORDERED: Ondansetron 4 MG/2 ML SDV ONE (06:44)
[2019-10-29] MEDS ORDERED: Lidocaine 1% 4 ML ONE (06:44)
[2019-10-29] MEDS ORDERED: Dexamethasone 4 MG/ML 5 ML MDV ONE (06:44)
[2019-10-29] MEDS ORDERED: Propofol 200 MG/20 ML SDV ONE (06:44)
[2019-10-29] MEDS ORDERED: fentaNYL 100 MCG/2 ML SDV ONE (06:45)
[2019-10-29] MEDS ORDERED: Ketorolac 30 MG/ML SDV ONE (06:45)
[2019-10-29] MEDS ORDERED: EPINEPHrine 1 MG/ML 30 ML MDV IRR SCH (07:00)
[2019-10-29] MEDS ORDERED: Sodium Chloride 0.9% 10 ML Syringe FLUSH PRN (07:05)
[2019-10-29] MEDS ORDERED: Ondansetron 4 MG/2 ML SDV IVPUSH PRN (07:05)
[2019-10-29] MEDS ORDERED: Lidocaine 1%/Sod Bicarbonate in NS 8.4% 1 ML Syringe IDERM PRN (07:05)
[2019-10-29] MEDS ORDERED: fentaNYL 100 MCG/2 ML SDV IVPUSH PRN (07:05)
[2019-10-29] MEDS ORDERED: HYDROmorphone 0.5 MG/0.5 ML Syringe IVPUSH PRN (07:05)
[2019-10-29] MEDS ORDERED: Lactated Ringers 1,000 ML IV SCH (07:15)
[2019-10-29] MEDS ORDERED: ceFAZolin 1 GM Vial ONE (07:52)
--- NOTE | 2019-10-29 08:03 | PCM.PREANE ---
Preanesthetic Assessment - Procedure Proposed Procedure: Left knee arthroscopy - Anesthesia/Transfusion/Family Hx Anesthesia History: Prior Anesthesia Without Reaction Family History of Anesthesia Reaction: No Transfusion History: Unknown Type of Transfusion Reactions: Reports: Unknown Anesthesia/Transfusion Comment: No previous difficulties with anesthesia or with intubation per patient - Review of Systems General: No Symptoms Pulmonary: Wheezing (Received breathing treatment) Cardiovascular: No Symptoms, Other (History of ablation for a-fib) Gastrointestinal: No Symptoms Neurological: No Symptoms Other: Reports: None - Physical Assessment NPO Status Date: 10/28/19 NPO Status Time: 22:00 Vital Signs: Last Vital Signs Temp 37.2 C 10/29/19 06:25 Pulse 81 10/29/19 06:25 Resp 16 10/29/19 06:25 BP 96/71 10/29/19 06:25 Pulse Ox 96 10/29/19 06:59 Height: 5 ft 2 in Weight: 103.419 kg ASA Class: 2 Mental Status: Alert & Oriented x3 Airway Class: Mallampati = 3 Dentition: Reports: Dentures Thyro-Mental Finger Breadths: 3 (large jowl (hard) under jaw) Mouth Opening Finger Breadths: 2 ROM/Head Extension: Other (Large neck) Lungs: Clear to Auscultation, Normal Respiratory Effort, Other (Improved after treatment. Smoker.) Cardiovascular: Regular Rate, Regular Rhythm - Lab Values: Laboratory Last Values MRSA (PCR) Negative 10/13/19 11:05 - Allergies Allergies/Adverse Reactions: Allergies Allergy/AdvReac Type Severity Reaction Status Date / Time No Known Allergies Allergy Verified 10/28/19 14:25 - Anesthesia Plan Pre-Op Medication Ordered: Other (Nebulizer) - Acknowledgements Anesthesia Type Planned: General Anesthesia Pt an Appropriate Candidate for the Planned Anesthesia: Yes Alternatives and Risks of Anesthesia Discussed w Pt/Guardian: Yes Pt/Guardian Understands and Agrees with Anesthesia Plan: Yes PreAnesthesia Questionnaire HEENT History: Reports: Allergic Rhinitis, Otitis Media, Other (See Below) Other HEENT History: wears dentures, post nasal drip, thrush, retrobulbar neuritis, pharyngitis, mouth sore Cardiovascular History: Reports: Afib Other Cardiovascular History: atrial fib and flutter. 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 History: Musculoskeletal History: Reports: Other (See Below) Other Musculoskeletal History: hand weakness, carpal tunnel, muscle spasm, left knee pain, neck pain, OA, patellar malalignment syndrome, left plantar fasciitis , right wrist pain, quad tightness Neurological History: Reports: CVA, Migraines, TIA, Other (See Below) Other Neuro History: dizziness, headaches, left foot paresthesia Psychiatric History: Reports: Addiction, Anxiety, Depression Other Psychiatric History: chronic pain, insomnia Endocrine/Metabolic History: Reports: Obesity/BMI 30+, Vitamin D Deficiency Hematologic History: Reports: Anemia Immunologic History: Reports: None Oncologic (Cancer) History: Reports: None Dermatologic History: Reports: Other (See Below) Other Dermatologic History: r hand burn, tinea corposis, right leg wound - Infectious Disease History Infectious Disease History: Reports: Chicken Pox - Past Surgical History Head Surgeries/Procedures: Reports: None HEENT Surgical History: Reports: Oral Surgery, Tonsillectomy Cardiovascular Surgical History: Reports: Cardiac Ablation Respiratory Surgical History: Reports: None GI Surgical History: Reports: Cholecystectomy Female Surgical History: Reports: Section Endocrine Surgical History: Reports: None Neurological Surgical History: Reports: None Musculoskeletal Surgical History: Reports: Carpal Tunnel Other Musculoskeletal Surgeries/Procedures:: carpal tunnel bilateral Oncologic Surgical History: Reports: None Dermatological Surgical History: Reports: None - SUBSTANCE USE Smoking Status *Q: Current Every Day Smoker Recreational Drug Use History: No - HOME MEDS Home Medications: Home Meds Gabapentin [Neurontin] 800 mg PO QID 05/31/15 [History] medroxyPROGESTERone Acetate [Depo-Provera] 150 mg IM ASDIRECTED 09/11/16 [ History] Zolpidem Tartrate [Ambien] 10 mg PO BEDTIME PRN 12/04/16 [History] traZODone 100 mg PO BEDTIME 12/04/16 [History] Apixaban [Eliquis] 5 mg PO BID 07/03/17 [History] Diltiazem HCl [Cartia Xt] 240 mg PO DAILY 09/06/17 [History] Ondansetron [Zofran ODT] 4 mg PO Q6H #6 tab.dis 09/06/17 [Rx] Topiramate [Topiramate ER] 100 mg PO BEDTIME 09/06/17 [History] Diclofenac Sodium [Voltaren 1% Gel] 1 applic TOP QID PRN 09/26/18 [History] Lidocaine 5% [Lidoderm 5%] 1 patch TOP Q12HR 09/26/18 [History] Albuterol Sulfate [Proair Hfa] 1 - 2 puff INH Q4H PRN 10/28/19 [History] Albuterol [Proventil] 1 dose NEB Q4H PRN 10/28/19 [History] Escitalopram [Lexapro] 20 mg PO DAILY 10/28/19 [History] Fluticasone Propionate [Flonase] 1 dose NASBOTH DAILY PRN 10/28/19 [History] Fluticasone/Vilanterol [Breo Ellipta 200-25 MCG Inhalation Kit] 1 puff INH DAILY 10/28/19 [History] Methocarbamol 750 - 1,500 mg PO Q6H PRN 10/28/19 [History] Nabumetone 500 mg PO BID 10/28/19 [History] SUMAtriptan Succinate [Imitrex] 100 mg PO DAILY PRN 10/28/19 [History] buPROPion HCl [Wellbutrin Xl] 300 mg PO DAILY 10/28/19 [History] hydrOXYzine HCl [hydrOXYzine] 25 - 50 mg PO TID PRN 10/28/19 [History] traMADol Hcl/Acetaminophen [Ultracet Tablet] 1 tab PO Q6H PRN 10/28/19 [History] Acetaminophen/HYDROcodone [[place] 325-5 MG] 1 - 2 tab PO Q6H PRN #20 tablet 10/29 [Rx] - CURRENT (IN HOUSE) MEDS Current Meds: Current Medications Epinephrine HCl (Adrenalin) 3 mg IRR ONETIME MALIKA Stop: 10/29/19 18:00 Fentanyl (Sublimaze) 50 mcg IVPUSH Q5M PRN PRN Reason: Pain Stop: 10/29/19 23:00 Hydromorphone HCl (Dilaudid) 0.5 mg IVPUSH Q10M PRN PRN Reason: Pain (severe 7-10) Stop: 10/29/19 23:00 Lactated Ringer's (Ringers, Lactated) 1,000 mls @ 125 mls/hr IV ASDIRECTED MALIKA Stop: 10/29/19 23:00 Lactated Ringer's (Ringers, Lactated) 1,000 mls @ 125 mls/hr IV ASDIRECTED MALIKA Stop: 10/29/19 23:00 Lidocaine/Sodium Bicarbonate (Buffered Lidocaine 1% In Ns 8.4%) 0.25 ml IDERM ONETIME PRN PRN Reason: Prior to IV Start Stop: 10/29/19 23:00 Lidocaine/Sodium Bicarbonate (Buffered Lidocaine 1% In Ns 8.4%) 0.25 ml IDERM ONETIME PRN PRN Reason: Prior to IV Start Stop: 10/29/19 23:00 Ondansetron HCl (Zofran) 4 mg IVPUSH ONETIME PRN PRN Reason: Nausea/Vomiting Stop: 10/29/19 23:00 Sodium Chloride (Saline Flush) 10 ml FLUSH ASDIRECTED PRN PRN Reason: Keep Vein Open Stop: 10/29/19 23:00 Sodium Chloride (Saline Flush) 10 ml FLUSH ASDIRECTED PRN PRN Reason: Keep Vein Open Stop: 10/29/19 23:00 Discontinued Medications Albuterol (Proventil Neb Soln) 2.5 mg NEB ONETIME ONE Stop: 10/29/19 06:40 Last Admin: 10/29/19 06:58 Dose: 2.5 mg Bupivacaine HCl (Sensorcaine-Mpf 0.25%) Confirm Administered Dose 20 ml .ROUTE .STK-MED ONE Stop: 10/29/19 06:38 Cefazolin Sodium (Ancef) Confirm Administered Dose 2 gm .ROUTE .STK-MED ONE Stop: 10/29/19 07:53 Dexamethasone (Dexamethasone) Confirm Administered Dose 20 mg .ROUTE .STK-MED ONE Stop: 10/29/19 06:45 Epinephrine HCl (Adrenalin) 3 mg .XX ASDIRECTED [facility] Stop: 10/19/19 18:00 Fentanyl (Sublimaze) Confirm Administered Dose 100 mcg .ROUTE .STK-MED ONE Stop: 10/29/19 06:46 Lactated Ringer's (Ringers, Lactated) 1,000 mls @ 125 mls/hr IV ASDIRECTED [facility] Stop: 10/19/19 23:00 Lidocaine HCl (Xylocaine-Mpf 1%) Confirm Administered Dose 4 mls @ as directed .ROUTE .STK-MED ONE Stop: 10/29/19 06:45 Ketorolac Tromethamine (Toradol) Confirm Administered Dose 30 mg .ROUTE .STK- MED ONE Stop: 10/29/19 06:46 Lidocaine/Sodium Bicarbonate (Buffered Lidocaine 1% In Ns 8.4%) 0.25 ml IDERM ONETIME PRN PRN Reason: Prior to IV Start Stop: 10/19/19 18:00 Ondansetron HCl (Zofran) Confirm Administered Dose 4 mg .ROUTE .STK-MED ONE Stop: 10/29/19 06:45 Propofol (Diprivan 20 Ml) Confirm Administered Dose 200 mg .ROUTE .STK-MED ONE Stop: 10/29/19 06:45 Sodium Chloride (Saline Flush) 10 ml FLUSH ASDIRECTED PRN PRN Reason: Keep Vein Open Stop: 10/19/19 18:00
--- NOTE | 2019-10-29 08:21 | PCM.POSTAN ---
POST ANESTHESIA ASSESSMENT - MENTAL STATUS Mental Status: Alert, Oriented - VITAL SIGNS Vital Signs: Last Vital Signs Temp 37.2 C 10/29/19 06:25 Pulse 81 10/29/19 06:25 Resp 16 10/29/19 06:25 BP 96/71 10/29/19 06:25 Pulse Ox 96 10/29/19 06:59 - RESPIRATORY Respiratory Status: Respiratory Rate WNL, Airway Patent, O2 Saturation Stable ( NC O2 support in PACU) - CARDIOVASCULAR CV Status: Pulse Rate WNL, Blood Pressure Stable - GASTROINTESTINAL GI Status: No Symptoms - PAIN Pain Score: 9 - POST OP HYDRATION Hydration Status: Adequate & Stable - OBSERVATIONS Free Text/Narrative:: Patient did well. Routine transfer to PACU with handoff to RN. Patient stating she has pain. VSS, SV, ARREDONDO, FAC, CTAB. No complications. Pain being treated with IV narcotic.
--- NOTE | 2019-10-29 08:48 | PCM48HPAN ---
Post Anesthesia Note - EVALUATION WITHIN 48HRS OF ANESTHETIC Vital Signs in Normal Range: Yes Patient Participated in Evaluation: Yes Respiratory Function Stable: Yes Airway Patent: Yes Cardiovascular Function Stable: Yes Hydration Status Stable: Yes Pain Control Satisfactory: Yes Nausea and Vomiting Control Satisfactory: Yes Mental Status Recovered: Yes Vital Signs: Last Vital Signs Temp 37.2 C 10/29/19 06:25 Pulse 81 10/29/19 06:25 Resp 16 10/29/19 06:25 BP 96/71 10/29/19 06:25 Pulse Ox 96 10/29/19 06:59 - COMMENTS/OBSERVATIONS Free Text/Narrative:: No concerns. Patient recovered nicely. Okay to discharge home.
[2019-10-29] MEDS ORDERED: Acetaminophen/HYDROcodone 325-5 MG Tab PO PRN (09:10)
[2019-10-29 09:20] VITALS: BP 124/72; PULSE 74
--- NOTE | 2019-11-02 07:04 | PCM.OPNOTE ---
- General Post-Op/Procedure Note Date of Surgery/Procedure: 10/29/19 Operative Procedure(s): left knee video arthroscopy with partial synovectomy Pre Op Diagnosis: left knee pain Post-Op Diagnosis: Same Anesthesia Technique: General LMA, Local Primary Surgeon: Mario Wallace Anesthesia Provider: Mayito Goldberg Teacher Aide Clerical: Lidia Alford in mLs: 5 Complications: None Condition: Good
--- NOTE | 2019-11-03 22:10 | OR ---
DATE OF OPERATION: 10/29/2019 SURGEON: Mario Wallace MD OPERATION PERFORMED: Left knee video arthroscopy with partial synovectomy. PREOPERATIVE DIAGNOSIS: Left knee pain. POSTOPERATIVE DIAGNOSIS: Left knee pain. ANESTHESIA: General LMA with local. ANESTHESIA PROVIDER: Mayito Goldberg. RADIATOR FITTER: Lidia Alford PA-C. ESTIMATED BLOOD LOSS: 5 mL. COMPLICATIONS: None. CONDITION: Stable. DESCRIPTION OF PROCEDURE: The patient was identified in the preop holding area. Proper site was marked and identified by the surgeon. The patient was taken back to the operating theater, where after adequate anesthesia, the patient's right lower extremity was placed in a well leg amezcua. Left lower extremity was placed in a C-clamp amezcua and nonsterile tourniquet applied. Foot of the bed was then lowered. Left lower extremity was then sterilely prepped and draped in the usual sterile fashion. OR time-out was performed. The patient received 2 g IV Ancef. The left lower extremity was then exsanguinated. Tourniquet was insufflated to 250 mmHg. Standard anterior lateral portal incision was made. Scope trocar was introduced into the knee joint. The patient was noted to have minor amount of grade 2 chondromalacia of the patella, but no loose fragments were noted. The patient was noted to have a large amount of synovium with significant erythema noted in the retropatellar fat pad and it was entrapped between the patella and the femur. Attention was turned to the medial compartment. Anterior medial portal was created with the use of spinal needle. At this time probe showed no medial meniscus tear. The patient had very minimal grade 1 chondromalacia of the medial compartment. ACL was intact in the notch. The patient had grade 1 chondromalacia of the lateral compartment. The patient had grade 2 chondromalacia of the patella. I did look for any loose fragments and there were none. At this time, a partial synovectomy was done of the anterior fat pad as it did show significant hypertrophy as well as medial plica. Excess saline was drained from the knee. 3-0 nylon suture was used for closure of the portal incisions, and patient had a sterile soft dressing applied and sent to PACU in stable condition. MMODAL /[id number]
== END 2019-10-29 09:50 | disposition home or self-care (01) ==
LOC: JD.SDS 06:15
PROVIDERS: ATTEND Orthopaedic Surgery
DX: M22.42 Chondromalacia patellae, left knee (principal); I10 Essential (primary) hypertension; G43.909 Migraine, unspecified, not intractable, without status migrainosus; J45.909 Unspecified asthma, uncomplicated; I48.91 Unspecified atrial fibrillation; F41.9 Anxiety disorder, unspecified; F32.9 Major depressive disorder, single episode, unspecified; F17.210 Nicotine dependence, cigarettes, uncomplicated; E66.9 Obesity, unspecified; Z79.899 Other long term (current) drug therapy; Z79.01 Long term (current) use of anticoagulants; Z68.41 Body mass index [BMI] 40.0-44.9, adult
CPT/HCPCS: 29875; 87641; 94640; A9270; J0171; J0690; J1100; J1170; J1885; J2001; J2405; J2704; J3010; J3490; J7120; 01400

== ENCOUNTER 2020-06-19 10:43 | Emergency (ER) | payer MEDICAID ==
[2020-06-19 11:00] VITALS: BP 127/87; PULSE 85
[2020-06-19] MEDS ORDERED: Ketorolac 60 MG/2 ML SDV IM ONE (11:10)
[2020-06-19] MEDS ORDERED: Metoclopramide 10 MG/2 ML SDV IM ONE (11:10)
[2020-06-19] MEDS ORDERED: diphenhydrAMINE 50 MG/ML SDV IM ONE (11:10)
--- NOTE | 2020-06-19 11:29 | EDM.PDOC ---
ED HPI GENERAL MEDICAL PROBLEM - General Chief Complaint: Headache Stated Complaint: MIGRAINE Time Seen by Provider: 06/19/20 10:57 Source of Information: Reports: Patient History Limitations: Reports: No Limitations - History of Present Illness INITIAL COMMENTS - FREE TEXT/NARRATIVE: The patient presents with a migraine. This started about a day and a half ago. She has some nausea and vomiting with it. She has pain to the right side of her head. She has a history of migraines. She has generalized weakness. She has no fever, chills, cough, congestion, runny nose, or abdominal pain. Onset: Gradual Duration: Day(s): Location: Reports: Head Quality: Reports: Sharp Severity: Severe Improves with: Reports: None Worsens with: Reports: None Associated Symptoms: Reports: Headaches, Nausea/Vomiting. Denies: Chest Pain, Cough, Fever/Chills, Shortness of Breath Headache Pain Score (Numeric/FACES): 9 - Related Data Allergies Allergy/AdvReac Type Severity Reaction Status Date / Time No Known Allergies Allergy Verified 06/19/20 11:00 Home Meds: Home Meds Gabapentin [Neurontin] 800 mg PO QID 05/31/15 [History] medroxyPROGESTERone Acetate [Depo-Provera] 150 mg IM ASDIRECTED 09/11/16 [History] Zolpidem Tartrate [Ambien] 10 mg PO BEDTIME PRN 12/04/16 [History] traZODone 100 mg PO BEDTIME 12/04/16 [History] Apixaban [Eliquis] 5 mg PO BID 07/03/17 [History] Ondansetron [Zofran ODT] 4 mg PO Q6H #6 tab.dis 09/06/17 [Rx] Topiramate [Topiramate ER] 100 mg PO BEDTIME 09/06/17 [History] dilTIAZem HCL [Cartia Xt] 240 mg PO DAILY 09/06/17 [History] Diclofenac Sodium [Voltaren 1% Gel] 1 applic TOP QID PRN 09/26/18 [History] Lidocaine 5% [Lidoderm 5%] 1 patch TOP Q12HR 09/26/18 [History] Albuterol Sulfate [Proair Hfa] 1 - 2 puff INH Q4H PRN 10/28/19 [History] Albuterol [Proventil] 1 dose NEB Q4H PRN 10/28/19 [History] Escitalopram [Lexapro] 20 mg PO DAILY 10/28/19 [History] Fluticasone Propionate [Flonase] 1 dose NASBOTH DAILY PRN 10/28/19 [History] Fluticasone/Vilanterol [Breo Ellipta 200-25 MCG Inhalation Kit] 1 puff INH DAILY 10/28/19 [History] Nabumetone 500 mg PO BID 10/28/19 [History] SUMAtriptan succinate [Imitrex] 100 mg PO DAILY PRN 10/28/19 [History] buPROPion HCL [Wellbutrin Xl] 300 mg PO DAILY 10/28/19 [History] hydrOXYzine HCL [hydrOXYzine] 25 - 50 mg PO TID PRN 10/28/19 [History] methocarbamoL [Methocarbamol] 750 - 1,500 mg PO Q6H PRN 10/28/19 [History] traMADol Hcl/Acetaminophen [Ultracet Tablet] 1 tab PO Q6H PRN 10/28/19 [History] Acetaminophen/HYDROcodone [[place] 325-5 MG] 1 - 2 tab PO Q6H PRN #20 tablet 10/29/19 [Rx] Past Medical History HEENT History: Reports: Allergic Rhinitis, Otitis Media, Other (See Below) Other HEENT History: wears dentures, post nasal drip, thrush, retrobulbar neuritis, pharyngitis, mouth sore Cardiovascular History: Reports: Afib Other Cardiovascular History: atrial fib and flutter. 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: Musculoskeletal History: Reports: Other (See Below) Other Musculoskeletal History: hand weakness, carpal tunnel, muscle spasm, left knee pain, neck pain, OA, patellar malalignment syndrome, left plantar fasciitis, right wrist pain, quad tightness Neurological History: Reports: CVA, Migraines, TIA, Other (See Below) Other Neuro History: dizziness, headaches, left foot paresthesia Psychiatric History: Reports: Addiction, Anxiety, Depression Other Psychiatric History: chronic pain, insomnia Endocrine/Metabolic History: Reports: Obesity/BMI 30+, Vitamin D Deficiency Hematologic History: Reports: Anemia Immunologic History: Reports: None Oncologic (Cancer) History: Reports: None Dermatologic History: Reports: Other (See Below) Other Dermatologic History: r hand burn, tinea corposis, right leg wound - Infectious Disease History Infectious Disease History: Reports: Chicken Pox - Past Surgical History Head Surgeries/Procedures: Reports: None HEENT Surgical History: Reports: Oral Surgery, Tonsillectomy Cardiovascular Surgical History: Reports: Cardiac Ablation Respiratory Surgical History: Reports: None GI Surgical History: Reports: Cholecystectomy Female Surgical History: Reports: Section Endocrine Surgical History: Reports: None Neurological Surgical History: Reports: None Musculoskeletal Surgical History: Reports: Carpal Tunnel Other Musculoskeletal Surgeries/Procedures:: carpal tunnel bilateral Oncologic Surgical History: Reports: None Dermatological Surgical History: Reports: None Social & Family History - Family History Family Medical History: Noncontributory - Tobacco Use Smoking Status *Q: Current Every Day Smoker Years of Tobacco use: 10 Packs/Tins Daily: 1 - Caffeine Use Caffeine Use: Reports: Soda Other Caffeine Use: Daily - Recreational Drug Use Recreational Drug Use: No - Living Situation & Occupation Living situation: Reports: , with Family (2 kids) Occupation: Unemployed ED ROS GENERAL - Review of Systems Review Of Systems: See Below Constitutional: Reports: No Symptoms HEENT: Reports: No Symptoms Respiratory: Reports: No Symptoms Cardiovascular: Reports: No Symptoms Endocrine: Reports: No Symptoms GI/Abdominal: Reports: No Symptoms : Reports: No Symptoms Musculoskeletal: Reports: No Symptoms Neurological: Reports: Headache - Physical Exam Exam: See Below Exam Limited By: No Limitations General Appearance: Alert, No Apparent Distress Ears: Normal External Exam Nose: Normal Inspection Head Exam: Atraumatic, Normocephalic Neck: Normal Inspection Respiratory/Chest: No Respiratory Distress, Lungs Clear, Normal Breath Sounds Cardiovascular: Regular Rate, Rhythm, No Edema, No Murmur GI/Abdominal: Soft, Non-Tender, No Organomegaly, No Mass Neuro Exam (Abbreviated): Alert, Oriented, No Motor/Sensory Deficits Course - Vital Signs Last Recorded V/S: Last Vital Signs Temp 97.1 F 06/19/20 10:57 Pulse 85 06/19/20 10:57 Resp 18 06/19/20 10:57 BP 127/87 06/19/20 10:57 Pulse Ox 100 06/19/20 10:57 - Orders/Labs/Meds Meds: Medications Discontinued Medications Generic Name Dose Route Start Last Admin Trade Name Liset PRN Reason Stop Dose Admin Diphenhydramine HCl 50 mg 06/19/20 11:10 Benadryl IM 06/19/20 11:11 ONETIME ONE Ketorolac Tromethamine 60 mg 06/19/20 11:10 Toradol IM 06/19/20 11:11 ONETIME ONE Metoclopramide HCl 10 mg 06/19/20 11:10 Reglan IM 06/19/20 11:11 ONETIME ONE - Re-Assessments/Exams Free Text/Narrative Re-Assessment/Exam: 06/19/20 11:33 I ordered toradol 60mg IM, benadryl 50mg IM and reglan 10mg IM. Departure - Departure Time of Disposition: 11:35 Disposition: Home, Self-Care 01 Condition: Good Clinical Impression: Migraine Qualifiers: Migraine type: unspecified Status migrainosus presence: without status migrainosus Intractability: not intractable Qualified Code(s): G43.909 - Migraine, unspecified, not intractable, without status migrainosus - Discharge Information *PRESCRIPTION DRUG MONITORING PROGRAM REVIEWED*: Not Applicable *COPY OF PRESCRIPTION DRUG MONITORING REPORT IN PATIENT EVERARDO: Not Applicable Referrals: Cinthya Martinez PA-C [Primary Care Provider] - Additional Instructions: Go home and rest. Please return if you are worse. Sepsis Event Note (ED) - Evaluation Sepsis Screening Result: No Definite Risk - Focused Exam Vital Signs: Vital Signs Temp Pulse Resp BP Pulse Ox 06/19/20 10:57 97.1 F 85 18 127/87 100
== END 2020-06-19 11:45 | disposition home or self-care (01) ==
LOC: JD.ED 10:43
DX: G43.909 Migraine, unspecified, not intractable, without status migrainosus (principal); F17.210 Nicotine dependence, cigarettes, uncomplicated; E66.9 Obesity, unspecified; Z68.41 Body mass index [BMI] 40.0-44.9, adult; I48.91 Unspecified atrial fibrillation; Z86.73 Personal history of transient ischemic attack (TIA), and cerebral infarction without residual deficits; F41.9 Anxiety disorder, unspecified; F32.9 Major depressive disorder, single episode, unspecified; Z79.01 Long term (current) use of anticoagulants; Z79.899 Other long term (current) drug therapy; J45.909 Unspecified asthma, uncomplicated
CPT/HCPCS: 96372; 99283; J1200; J1885; J2765; 99284

== ENCOUNTER 2020-06-19 20:19 | Emergency (ER) | payer MEDICAID ==
[2020-06-19 20:49] VITALS: BP 127/81
[2020-06-19] MEDS ORDERED: Metoclopramide 10 MG/2 ML SDV IVPUSH ONE (21:08)
[2020-06-19] MEDS ORDERED: HYDROmorphone 0.5 MG/0.5 ML Syringe IVPUSH ONE (21:08)
[2020-06-19] MEDS ORDERED: Ketorolac 30 MG/ML SDV IVPUSH ONE (21:08)
[2020-06-19] MEDS ORDERED: diphenhydrAMINE 50 MG/ML SDV IVPUSH ONE (21:09)
[2020-06-19] MEDS ORDERED: Sodium Chloride 0.9% 1,000 ML IV SCH (21:15)
--- NOTE | 2020-06-19 21:45 | EDM.PDOC ---
ED HPI GENERAL MEDICAL PROBLEM - General Chief Complaint: Headache Stated Complaint: MIGRAINE Time Seen by Provider: 06/19/20 20:29 Source of Information: Reports: Patient History Limitations: Reports: No Limitations - History of Present Illness INITIAL COMMENTS - FREE TEXT/NARRATIVE: Patient is a 39-year-old female who presents to the emergency department with migraine headache. Symptoms began yesterday. She complains of nausea as well as one episode of vomiting. She was seen in the emergency department around 11:00 this morning. She received intramuscular Reglan, Toradol, and Benadryl. States this did slightly improve her symptoms. She went home and slept. Upon waking, the migraine had returned. She also had some blurred vision in her left eye. Been using [id number] Tylenol, as well as tramadol for pain. Last dose of Tylenol was around 2:00 this afternoon. Last dose of tramadol was around 3 PM. Patient does have a long history of migraine headaches. States she normally takes Imitrex, however they are currently out. States this is a typical migraine for her. Treatments ACCOUNTING RECRUITER: Reports: Acetaminophen, NSAIDS Headache Pain Score (Numeric/FACES): 8 - Related Data Allergies Allergy/AdvReac Type Severity Reaction Status Date / Time No Known Allergies Allergy Verified 06/19/20 20:49 Home Meds: Home Meds Gabapentin [Neurontin] 800 mg PO QID 05/31/15 [History] medroxyPROGESTERone Acetate [Depo-Provera] 150 mg IM ASDIRECTED 09/11/16 [History] Zolpidem Tartrate [Ambien] 10 mg PO BEDTIME PRN 12/04/16 [History] traZODone 100 mg PO BEDTIME 12/04/16 [History] Apixaban [Eliquis] 5 mg PO BID 07/03/17 [History] Ondansetron [Zofran ODT] 4 mg PO Q6H #6 tab.dis 09/06/17 [Rx] Topiramate [Topiramate ER] 100 mg PO BEDTIME 09/06/17 [History] dilTIAZem HCL [Cartia Xt] 240 mg PO DAILY 09/06/17 [History] Diclofenac Sodium [Voltaren 1% Gel] 1 applic TOP QID PRN 09/26/18 [History] Lidocaine 5% [Lidoderm 5%] 1 patch TOP Q12HR 11/02/18 [History] Albuterol Sulfate [Proair Hfa] 1 - 2 puff INH Q4H PRN 10/28/19 [History] Albuterol [Proventil] 1 dose NEB Q4H PRN 10/28/19 [History] Escitalopram [Lexapro] 20 mg PO DAILY 10/28/19 [History] Fluticasone Propionate [Flonase] 1 dose NASBOTH DAILY PRN 10/28/19 [History] Fluticasone/Vilanterol [Breo Ellipta 200-25 MCG Inhalation Kit] 1 puff INH DAILY 10/28/19 [History] Nabumetone 500 mg PO BID 10/28/19 [History] SUMAtriptan succinate [Imitrex] 100 mg PO DAILY PRN 10/28/19 [History] buPROPion HCL [Wellbutrin Xl] 300 mg PO DAILY 10/28/19 [History] hydrOXYzine HCL [hydrOXYzine] 25 - 50 mg PO TID PRN 10/28/19 [History] methocarbamoL [Methocarbamol] 750 - 1,500 mg PO Q6H PRN 10/28/19 [History] traMADol Hcl/Acetaminophen [Ultracet Tablet] 1 tab PO Q6H PRN 10/28/19 [History] Acetaminophen/HYDROcodone [[place] 325-5 MG] 1 - 2 tab PO Q6H PRN #20 tablet 10/29/19 [Rx] Past Medical History HEENT History: Reports: Allergic Rhinitis, Otitis Media, Other (See Below) Other HEENT History: wears dentures, post nasal drip, thrush, retrobulbar neuritis, pharyngitis, mouth sore Cardiovascular History: Reports: Afib Other Cardiovascular History: atrial fib and flutter. 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: Musculoskeletal History: Reports: Other (See Below) Other Musculoskeletal History: hand weakness, carpal tunnel, muscle spasm, left knee pain, neck pain, OA, patellar malalignment syndrome, left plantar fasciitis, right wrist pain, quad tightness Neurological History: Reports: CVA, Migraines, TIA, Other (See Below) Other Neuro History: dizziness, headaches, left foot paresthesia Psychiatric History: Reports: Addiction, Anxiety, Depression Other Psychiatric History: chronic pain, insomnia Endocrine/Metabolic History: Reports: Obesity/BMI 30+, Vitamin D Deficiency Hematologic History: Reports: Anemia Immunologic History: Reports: None Oncologic (Cancer) History: Reports: None Dermatologic History: Reports: Other (See Below) Other Dermatologic History: r hand burn, tinea corposis, right leg wound - Infectious Disease History Infectious Disease History: Reports: Chicken Pox - Past Surgical History Head Surgeries/Procedures: Reports: None HEENT Surgical History: Reports: Oral Surgery, Tonsillectomy Cardiovascular Surgical History: Reports: Cardiac Ablation Respiratory Surgical History: Reports: None GI Surgical History: Reports: Cholecystectomy Female Surgical History: Reports: Section Endocrine Surgical History: Reports: None Neurological Surgical History: Reports: None Musculoskeletal Surgical History: Reports: Carpal Tunnel Other Musculoskeletal Surgeries/Procedures:: carpal tunnel bilateral Oncologic Surgical History: Reports: None Dermatological Surgical History: Reports: None Social & Family History - Family History Family Medical History: Noncontributory - Tobacco Use Smoking Status *Q: Current Every Day Smoker Years of Tobacco use: 18 Packs/Tins Daily: 0.5 - Caffeine Use Caffeine Use: Reports: Soda Other Caffeine Use: Daily - Recreational Drug Use Recreational Drug Use: No - Living Situation & Occupation Living situation: Reports: , with Family (2 kids) Occupation: Unemployed ED ROS GENERAL - Review of Systems Review Of Systems: See Below Constitutional: Reports: No Symptoms. Denies: Fever, Chills HEENT: Reports: Vision Change (Left eye) Respiratory: Reports: No Symptoms Cardiovascular: Reports: No Symptoms Endocrine: Reports: No Symptoms GI/Abdominal: Reports: Nausea, Vomiting. Denies: Abdominal Pain, Diarrhea : Reports: No Symptoms Musculoskeletal: Reports: No Symptoms Skin: Reports: No Symptoms Neurological: Reports: Headache. Denies: Confusion Psychiatric: Reports: No Symptoms Hematologic/Lymphatic: Reports: No Symptoms Immunologic: Reports: No Symptoms - Physical Exam Exam: See Below Exam Limited By: No Limitations General Appearance: Alert, WD/WN, No Apparent Distress Eye Exam: Bilateral Eye: PERRL Respiratory/Chest: No Respiratory Distress, Lungs Clear, Normal Breath Sounds, No Accessory Muscle Use, Chest Non-Tender Cardiovascular: Normal Peripheral Pulses, Regular Rate, Rhythm, No Edema, No Gallop, No JVD, No Murmur, No Rub Neuro Exam (Abbreviated): Alert, Oriented, CN II-XII Intact, Normal Cognition, Normal Gait, Normal Reflexes, No Motor/Sensory Deficits Psychiatric: Normal Affect, Normal Mood Skin Exam: Warm, Dry, Intact, Normal Color, No Rash Course - Vital Signs Last Recorded V/S: Last Vital Signs Temp 97.7 F 06/19/20 20:46 Pulse 76 06/19/20 23:30 Resp 16 06/19/20 23:30 BP 127/81 06/19/20 20:46 Pulse Ox 100 06/19/20 23:30 - Orders/Labs/Meds Meds: Medications Discontinued Medications Generic Name Dose Route Start Last Admin Trade Name Freq PRN Reason Stop Dose Admin Diphenhydramine HCl 25 mg 06/19/20 21:09 06/19/20 22:30 Benadryl IVPUSH 06/19/20 21:10 25 mg ONETIME ONE Administration Hydromorphone HCl 0.5 mg 06/19/20 21:08 06/19/20 22:45 Dilaudid IVPUSH 06/19/20 21:09 Not Given ONETIME ONE Sodium Chloride 1,000 mls @ 999 mls/hr 06/19/20 21:15 06/19/20 22:30 Normal Saline IV 999 mls/hr ASDIRECTED MALIKA Administration Ketorolac Tromethamine 30 mg 06/19/20 21:08 06/19/20 22:31 Toradol IVPUSH 06/19/20 21:09 30 mg ONETIME ONE Administration Metoclopramide HCl 7.5 mg 06/19/20 21:08 06/19/20 22:31 Reglan IVPUSH 06/19/20 21:09 7.5 mg ONETIME ONE Administration - Re-Assessments/Exams Free Text/Narrative Re-Assessment/Exam: Patient is a 39-year-old female who presents with complaints of right-sided headache and left-sided blurry vision. She has a history of migraines and states this is similar to her past migraines. She was seen in the emergency department earlier today and received intramuscular Toradol, Reglan, and Benadryl. This did help, however when she woke from a nap the symptoms had returned. I have ordered 1 L of normal saline bolus, Toradol 30 mg IV, Reglan 7.5 mg, and Benadryl 25 mg IV. 06/19/20 23:00 Patient is feeling better after the medications given. She would like to be discharged to go home and sleep. Discharge instructions as documented. Departure - Departure Time of Disposition: 23:02 Disposition: Home, Self-Care 01 Condition: Good Clinical Impression: Migraine - Discharge Information *PRESCRIPTION DRUG MONITORING PROGRAM REVIEWED*: No *COPY OF PRESCRIPTION DRUG MONITORING REPORT IN PATIENT EVERARDO: No Instructions: Migraine Headache, [id number] Referrals: Cinthya Martinez PA-C [Primary Care Provider] - Forms: ED Department Discharge Additional Instructions: You were seen in the emergency department tonight for a migraine headache. While in the ER you received Toradol, Reglan, Benadryl, and a liter of IV fluids. This did improve your symptoms. Recommend that you go home and rest in a quiet dark room. You may continue to use [id number] Tylenol or ibuprofen as needed for pain. Return to the ER as needed. Sepsis Event Note (ED) - Evaluation Sepsis Screening Result: No Definite Risk
[2020-06-20 00:08] VITALS: PULSE 76
== END 2020-06-19 23:31 | disposition home or self-care (01) ==
LOC: JD.ED 20:19
DX: G43.909 Migraine, unspecified, not intractable, without status migrainosus (principal); J45.909 Unspecified asthma, uncomplicated; F41.9 Anxiety disorder, unspecified; F32.9 Major depressive disorder, single episode, unspecified; I48.91 Unspecified atrial fibrillation; E66.9 Obesity, unspecified; F17.210 Nicotine dependence, cigarettes, uncomplicated; Z79.01 Long term (current) use of anticoagulants; Z79.899 Other long term (current) drug therapy
CPT/HCPCS: 96361; 96374; 96375; 99283; J1200; J1885; J2765; J7030

== ENCOUNTER 2021-09-30 10:17 | Emergency (ER) | payer MEDICAID ==
[2021-09-30] MEDS ORDERED: Promethazine 25 MG/ML SDV IM ONE (10:41)
[2021-09-30] MEDS ORDERED: HYDROmorphone 1 MG/ML Syringe IM ONE (10:41)
--- NOTE | 2021-09-30 10:49 | EDM.PDOC ---
ED HPI GENERAL MEDICAL PROBLEM - General Chief Complaint: Lower Extremity Injury/Pain Stated Complaint: L KNEE PAIN Time Seen by Provider: 09/30/21 10:30 Source of Information: Reports: Patient, Family (daughter) History Limitations: Reports: No Limitations - History of Present Illness INITIAL COMMENTS - FREE TEXT/NARRATIVE: 41-year-old female presents to the ED complaining of severe pain left knee. Apparently she has known severe degenerative arthritic change in her knee with [id number] situation and has been scheduled for MRI on multiple occasions which she is missed out on. She states currently the pain is so bad she cannot sleep and she appears exhausted. Pain is constant throbbing pulsating primarily felt in the anterior medial left knee. She did use crutches for period of time but found this aggravated her carpal tunnel syndrome and her lower back. At present she is limping along and she has not found a knee brace helpful in the past. She basically is here for pain management due to inability to sleep at night due to the constant pain throbbing in her knee. She has a follow-up appointment with Dr. Wallace to orthopedic surgeon on October 10. She is supposed to have an MRI of her left knee in the interim. Apparently she is a candidate for a total knee replacement Onset: Other (Chronic problem just getting worse) Duration: Chronic, Getting Worse Location: Reports: Lower Extremity, Left (Left knee pain) Quality: Reports: Ache ( mostly anterior medial), Throbbing, Other Severity: Severe (Pulsating at times) Improves with: Reports: Rest Worsens with: Reports: Movement (Pain even at rest worse with weightbearing.) Context: Reports: Trauma (Aggravated by twist injury walking her dog in February of this last year.), Other. Denies: Activity, Exercise, Lifting, Sick Contact Associated Symptoms: Reports: Other (Insomnia) Treatments FILLING TECHNICIAN: Reports: Acetaminophen, Other (see below) (Tramadol is no longer helping) Left Knee Pain Score (Numeric/FACES): 10 - Related Data Allergies Allergy/AdvReac Type Severity Reaction Status Date / Time No Known Allergies Allergy Verified 09/30/21 10:28 Home Meds: Home Meds Gabapentin [Neurontin] 800 mg PO QID 05/31/15 [History] medroxyPROGESTERone Acetate [Depo-Provera] 150 mg IM ASDIRECTED 09/11/16 [History] Zolpidem Tartrate [Ambien] 10 mg PO BEDTIME PRN 12/04/16 [History] traZODone 100 mg PO BEDTIME 12/04/16 [History] Apixaban [Eliquis] 5 mg PO BID 07/03/17 [History] Ondansetron [Zofran ODT] 4 mg PO Q6H #6 tab.dis 09/06/17 [Rx] Topiramate [Topiramate ER] 100 mg PO BEDTIME 09/06/17 [History] dilTIAZem HCL [Cartia Xt] 240 mg PO DAILY 09/06/17 [History] Diclofenac Sodium [Voltaren 1% Gel] 1 applic TOP QID PRN 09/26/18 [History] Lidocaine 5% [Lidoderm 5%] 1 patch TOP Q12HR 09/26/18 [History] Albuterol Sulfate [Proair Hfa] 1 - 2 puff INH Q4H PRN 10/28/19 [History] Albuterol [Proventil] 1 dose NEB Q4H PRN 10/28/19 [History] Escitalopram [Lexapro] 20 mg PO DAILY 10/28/19 [History] Fluticasone Propionate [Flonase] 1 dose NASBOTH DAILY PRN 10/28/19 [History] Fluticasone/Vilanterol [Breo Ellipta 200-25 MCG Inhalation Kit] 1 puff INH DAILY 10/28/19 [History] Nabumetone 500 mg PO BID 10/28/19 [History] SUMAtriptan succinate [Imitrex] 100 mg PO DAILY PRN 10/28/19 [History] buPROPion HCL [Wellbutrin Xl] 300 mg PO DAILY 10/28/19 [History] hydrOXYzine HCL [hydrOXYzine] 25 - 50 mg PO TID PRN 10/28/19 [History] methocarbamoL [Methocarbamol] 750 - 1,500 mg PO Q6H PRN 10/28/19 [History] traMADol Hcl/Acetaminophen [Ultracet Tablet] 1 tab PO Q6H PRN 10/28/19 [History] Acetaminophen/HYDROcodone [Leary 325-5 MG] 1 - 2 tab PO Q6H PRN #20 tablet 1 12/30/18 [Rx] Hydrocodone/Acetaminophen [HYDROcodone-Acetaminophen 7.5-325 MG] 1 each PO Q6H PRN #28 tablet 09/30/21 [Rx] Past Medical History HEENT History: Reports: Allergic Rhinitis, Otitis Media, Other (See Below) Other HEENT History: wears dentures, post nasal drip, thrush, retrobulbar neuritis, pharyngitis, mouth sore Cardiovascular History: Reports: Afib Other Cardiovascular History: atrial fib and flutter. 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: Musculoskeletal History: Reports: Other (See Below) Other Musculoskeletal History: hand weakness, carpal tunnel, muscle spasm, left knee pain, neck pain, OA, patellar malalignment syndrome, left plantar fasciitis, right wrist pain, quad tightness Neurological History: Reports: CVA, Migraines, TIA, Other (See Below) Other Neuro History: dizziness, headaches, left foot paresthesia Psychiatric History: Reports: Addiction, Anxiety, Depression Other Psychiatric History: chronic pain, insomnia Endocrine/Metabolic History: Reports: Obesity/BMI 30+, Vitamin D Deficiency Hematologic History: Reports: Anemia Immunologic History: Reports: None Oncologic (Cancer) History: Reports: None Dermatologic History: Reports: Other (See Below) Other Dermatologic History: r hand burn, tinea corposis, right leg wound - Infectious Disease History Infectious Disease History: Reports: Chicken Pox - Past Surgical History Head Surgeries/Procedures: Reports: None HEENT Surgical History: Reports: Oral Surgery, Tonsillectomy Cardiovascular Surgical History: Reports: Cardiac Ablation Respiratory Surgical History: Reports: None GI Surgical History: Reports: Cholecystectomy Female Surgical History: Reports: Section Endocrine Surgical History: Reports: None Neurological Surgical History: Reports: None Musculoskeletal Surgical History: Reports: Carpal Tunnel Other Musculoskeletal Surgeries/Procedures:: carpal tunnel bilateral Oncologic Surgical History: Reports: None Dermatological Surgical History: Reports: None Social & Family History - Family History Family Medical History: No Pertinent Family History - Tobacco Use Tobacco Use Status *Q: Never Tobacco User - Caffeine Use Caffeine Use: Reports: Soda Other Caffeine Use: Daily - Living Situation & Occupation Living situation: Reports: , with Family (2 kids) Occupation: Unemployed Review of Systems - Review of Systems Review Of Systems: See Below Constitutional: Reports: No Symptoms Eyes: Reports: No Symptoms Ears: Reports: No Symptoms Nose: Reports: No Symptoms Mouth/Throat: Reports: No Symptoms Respiratory: Reports: No Symptoms Cardiovascular: Reports: No Symptoms GI/Abdominal: Reports: Diarrhea (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 Temperature is 36.9 degrees heart rate 88 and sinus respiratory is 18 with O2 sats of 99% room air. BP mildly elevated 161 102) Eye Exam: Bilateral Eye: Normal Inspection (No blepharal pallor or scleral icterus.) Extremities: Other (Left knee shows no obvious effusion. Tenderness mostly medial anterior joint space. Mild tenderness over the infraspinatus bursa. Pain with flexion and she is unable to fully extend due to pain. Pain is made worse by weightbearing. Cruciate ligaments appear to be intact.) Neurological: Alert, Oriented, CN II-XII Intact, Normal Cognition. No: Normal Gait Psychiatric: Tearful Skin Exam: Warm, Dry, Intact, Normal Color, No Rash Course - Vital Signs Last Recorded V/S: Last Vital Signs Temp 36.9 C 09/30/21 10:25 Pulse 88 09/30/21 10:25 Resp 18 09/30/21 10:25 BP 161/102 H 09/30/21 10:25 Pulse Ox 99 09/30/21 10:25 - Orders/Labs/Meds Meds: Medications Discontinued Medications Generic Name Dose Route Start Last Admin Trade Name Freq PRN Reason Stop Dose Admin Hydromorphone HCl 1 mg 09/30/21 10:41 Hydromorphone 1 Mg/Ml Syringe IM 09/30/21 10:42 ONETIME ONE Promethazine HCl 25 mg 09/30/21 10:41 Promethazine 25 Mg/Ml Sdv IM 09/30/21 10:42 ONETIME ONE - Radiology Interpretation Free Text/Narrative:: 41-year-old female presents to the ED basically for pain management. She has known severe chronic degenerative arthritic change left knee with [id number] situation. She has failed to have follow-up MRI scheduled on her left knee. She has an appointment to see Dr. Wallace orthopedic surgeon on the of this month for consultation in regards to a total knee replacement. She is only 41 years of age and therefore there is some concern that she may be too young for a total knee replacement but she can no longer cope with the chronic pain in her left knee which is severely disrupting her lifestyle and ability to sleep. She has been using tramadol and Tylenol for pain relief without much relief. She is currently on Eliquis 5 mg daily due to previous DVTs and PE. She cannot take anti-inflammatories. Examination reveals evidence of painful left knee with very limited range of motion no obvious effusion appreciated on knee exam. Pain mostly medial anterior joint space. She has inability to fully extend the knee and therefore feels like a knee brace would actually be more cumbersome and then helpful. She does have crutches that she can use intermittently at home although it aggravates her carpal tunnel syndrome and her low back. Essentially she needs her knee replaced. She received Dilaudid 1 mg IM with Phenergan 25 mg IM in the ED for acute pain relief. Prescription written for hydrocodone 7.5/325 mg tablet 1 every 6 hours as needed for pain relief until she can follow-up with Dr. Yoder. 28 tablets provided. Secondly I did give her a prescription for Colestid 1 g tablet to be taken every night at bedtime due to bile salt catharsis and chronic diarrhea since she has had her gallbladder removed. This is creating a chronic malabsorption particularly of vitamins such as vitamin B12. Departure - Departure Time of Disposition: 11:15 Disposition: Home, Self-Care 01 Condition: Fair Clinical Impression: Chronic pain of left knee Degenerative arthritis of left knee Qualifiers: Osteoarthritis type: primary Qualified Code(s): M17.12 - Unilateral primary osteoarthritis, left knee - Discharge Information *PRESCRIPTION DRUG MONITORING PROGRAM REVIEWED*: Not Applicable *COPY OF PRESCRIPTION DRUG MONITORING REPORT IN PATIENT [facility]: Not Applicable Prescriptions: Hydrocodone/Acetaminophen [HYDROcodone-Acetaminophen 7.5-325 MG] 1 each PO Q6H PRN #28 tablet PRN Reason: Left knee pain Instructions: Arthritis, [id number], Pain Medicine Instructions, [id number] Referrals: Cinthya Martinez PA-C [Primary Care Provider] - Forms: ED Department Discharge Additional Instructions: Evaluation in the emergency room today in regards to severe ongoing pain in your left knee from degenerative arthritic change and need for a total knee replacement. Tramadol is no longer controlling your pain. You are currently on Eliquis 5 mg daily and therefore you cannot take anti-inflammatory medications on a regular basis as it such you up for bleeding from the GI tract. You were treated in the ED with an intramuscular injection of pain medication Dilaudid 1 mg and Phenergan 25 mg IM. This will likely cause some degree of sedation and allow you to sleep for the next 3 to 5 hours. Suggest using pain medication hydrocodone 7.5/325 mg tablet 1 every 6 hours as needed during the day but primarily use at bedtime to allow sleep. Prescription written for Colestid 1 g tablets to be taken every night at bedtime to help with chronic diarrhea from bile salt catharsis after having her gallbladder removed. This is a trial medication should make a difference within the next week to 10 days. Suggest trying it for a minimum of 3 weeks to see if it does not help stop the diarrhea and help form up the stools to normal. Follow-up MRI is to be done and you can reschedule that with the radiology department. Follow-up with Dr. Wallace orthopedic surgeon on October 10 as planned for sideration of total knee replacement to relieve chronic pain and disability. Sepsis Event Note (ED) - Evaluation Sepsis Screening Result: No Definite Risk - Focused Exam Vital Signs: Vital Signs Temp Pulse Resp BP Pulse Ox 09/30/21 10:25 36.9 C 88 18 161/102 H 99
[2021-09-30 11:25] VITALS: BP 127/93; PULSE 73
== END 2021-09-30 11:36 | disposition home or self-care (01) ==
LOC: JD.ED 10:17
DX: M17.12 Unilateral primary osteoarthritis, left knee (principal); I48.91 Unspecified atrial fibrillation; I48.92 Unspecified atrial flutter; J45.909 Unspecified asthma, uncomplicated; E66.9 Obesity, unspecified; Z79.01 Long term (current) use of anticoagulants; Z79.899 Other long term (current) drug therapy
CPT/HCPCS: 96372; 99283; J1170; J2550

== ENCOUNTER 2021-10-31 20:58 | Emergency (ER) | payer MEDICAID ==
[2021-10-31 21:49] VITALS: BP 138/85; PULSE 69
[2021-10-31] MEDS ORDERED: Ketorolac 60 MG/2 ML SDV IM ONE (22:59)
[2021-10-31 23:03] LABS: CORONAVIRUS COVID-19 NAA NEGATIVE (NEGATIVE)
--- NOTE | 2021-10-31 23:03 | EDM.PDOC ---
ED HPI GENERAL MEDICAL PROBLEM - General Chief Complaint: Respiratory Problem Stated Complaint: HEADACHE/COUGH/SOB Time Seen by Provider: 10/31/21 22:38 Source of Information: Reports: Patient, Family (Daughter) History Limitations: Reports: No Limitations - History of Present Illness INITIAL COMMENTS - FREE TEXT/NARRATIVE: Ms. Jacinto is a pleasant 41-year-old woman who now presents the ED stating that she developed a headache, cough productive of brownish sputum, sore throat, dyspnea, and subjective fever with chills this past 10/28/2021. Deep breaths induce a cough. She vomited once today. She states that she has been wheezing, including now. She took sumatriptan for her headache, which she states did not help, and she has taken [id number] NyQuil, which has not helped her symptoms. Here in the ED, the patient is found to be hemodynamically stable, afebrile, saturating 97% on room air. She appears to be somewhat uncomfortable, although in no acute distress. Prior to Saturday, the patient denies having a recent fever, chills, sore throat, ear pain, nasal or sinus congestion, cough, dyspnea, chest pain, palpitations, nausea, vomiting, constipation, diarrhea, abdominal pain, urinary symptoms, recent weight gain or weight loss, recent bloody bowel movements or black bowel movements, recent joint aches, headaches, or rashes. The patient's PCP is SAM Leonard. Her Reflow Operator is Dr. Isidro Metzger, in [place]. Her Orthopedic Surgeon is Dr. Mario Wallace. She has received 2 COVID vaccinations, although no booster, and no influenza vaccination this season. Forehead Pain Score (Numeric/FACES): 10 - Related Data Allergies Allergy/AdvReac Type Severity Reaction Status Date / Time No Known Allergies Allergy Verified 09/30/21 10:28 Home Meds: Home Meds medroxyPROGESTERone Acetate [Depo-Provera] 150 mg IM ASDIRECTED 09/11/16 [History] Zolpidem Tartrate [Ambien] 10 mg PO BEDTIME PRN 12/04/16 [History] traZODone 100 mg PO BEDTIME 12/04/16 [History] Apixaban [Eliquis] 5 mg PO BID 07/03/17 [History] Ondansetron [Zofran ODT] 4 mg PO Q6H #6 tab.dis 09/06/17 [Rx] Topiramate [Topiramate ER] 100 mg PO BEDTIME 09/06/17 [History] dilTIAZem HCL [Cartia Xt] 240 mg PO DAILY 09/06/17 [History] Diclofenac Sodium [Voltaren 1% Gel] 1 applic TOP QID PRN 09/26/18 [History] Lidocaine 5% [Lidoderm 5%] 1 patch TOP Q12HR 09/26/18 [History] Albuterol Sulfate [Proair Hfa] 1 - 2 puff INH Q4H PRN 10/28/19 [History] Albuterol [Proventil] 1 dose NEB Q4H PRN 10/28/19 [History] Fluticasone Propionate [Flonase] 1 dose NASBOTH DAILY PRN 10/28/19 [History] Fluticasone/Vilanterol [Breo Ellipta 200-25 MCG Inhalation Kit] 1 puff INH DAILY 10/28/19 [History] SUMAtriptan succinate [Imitrex] 100 mg PO DAILY PRN 10/28/19 [History] buPROPion HCL [Wellbutrin Xl] 300 mg PO DAILY 10/28/19 [History] traMADol Hcl/Acetaminophen [Ultracet Tablet] 1 tab PO Q6H PRN 10/28/19 [History] Acetaminophen/HYDROcodone [[place]reek 325-5 MG] 1 - 2 tab PO Q6H PRN #20 tablet 10/29/19 [Rx] Past Medical History HEENT History: Reports: Allergic Rhinitis, Other (See Below) (Edentulous) Cardiovascular History: Reports: Afib (paroxysmal) Respiratory History: Reports: Other (See Below) (Patient states that she has asthma, but her PFTs have been normal) Gastrointestinal History: Reports: Gastritis, GERD Musculoskeletal History: Reports: Osteoarthritis Neurological History: Reports: Migraines, TIA Psychiatric History: Reports: Addiction, Anxiety, Depression, Other (See Below) (Insomnia) Endocrine/Metabolic History: Reports: Obesity/BMI 30+, Vitamin D Deficiency - Infectious Disease History Infectious Disease History: Reports: Chicken Pox - Past Surgical History HEENT Surgical History: Reports: Oral Surgery (dental extractions), Tonsillectomy Cardiovascular Surgical History: Reports: Cardiac Ablation GI Surgical History: Reports: Cholecystectomy (12/05/2016), Colonoscopy, EGD Female Surgical History: Reports: Section (x 3) Musculoskeletal Surgical History: Reports: Arthroscopic Knee (left), Carpal Tunnel (bilateral) Social & Family History - Tobacco Use Tobacco Use Status *Q: Current Every Day Tobacco User Years of Tobacco use: 24 Packs/Tins Daily: 0.5 Packs/Tins Daily Comment: Down from 1 ppd Tobacco Use Comment: Started smoking 1996 - Caffeine Use Caffeine Use: Reports: Soda Other Caffeine Use: Daily - Alcohol Use Alcohol Use History: No - Recreational Drug Use Recreational Drug Use: Yes Drug Use in Last 12 Months: Yes Recreational Drug Type: Reports: Marijuana/Hashish (smokes daily) - Living Situation & Occupation Living situation: Reports: , with Family (2 kids) Occupation: Unemployed ED ROS GENERAL - Review of Systems Review Of Systems: Comprehensive ROS is negative, except as noted in HPI. ED EXAM, GENERAL - Physical Exam Exam: See Below Exam Limited By: No Limitations General Appearance: Alert, WD/WN, No Apparent Distress Eye Exam: Bilateral Eye: EOMI, Normal Inspection Ears: Normal External Exam, Hearing Grossly Normal Nose: Normal Inspection Throat/Mouth: Normal Inspection, Normal Lips, Normal Voice, No Airway Compromise Head: Atraumatic, Normocephalic Neck: Normal Inspection, Full Range of Motion Respiratory/Chest: No Respiratory Distress, Lungs Clear, Normal Breath Sounds, No Accessory Muscle Use, Other (When asked to take a deep breath to auscultate her lungs, this induced a paroxysm of cough). No: Decreased Breath Sounds, Crackles, Rhonchi, Wheezing, Prolonged Expiration Cardiovascular: Normal Peripheral Pulses, Regular Rate, Rhythm, No Edema, No Gallop, No JVD, No Murmur, No Rub Peripheral Pulses: 3+: Radial (L), Radial (R) GI/Abdominal: Normal Bowel Sounds, Soft, Non-Tender, No Organomegaly, No Distention, No Abnormal Bruit, No Mass Back Exam: Normal Inspection, Full Range of Motion, NT Extremities: Normal Inspection, Normal Range of Motion, No Pedal Edema, Normal Capillary Refill Neurological: Alert, Oriented, Normal Cognition, No Motor/Sensory Deficits Psychiatric: Normal Affect Skin Exam: Warm, Dry, Intact, Normal Color, No Rash Course - Vital Signs Last Recorded V/S: Last Vital Signs Temp 36.7 C 10/31/21 21:38 Pulse 69 10/31/21 21:38 Resp 20 10/31/21 21:38 BP 138/85 10/31/21 21:38 Pulse Ox 97 10/31/21 21:38 - Orders/Labs/Meds Orders: Active Orders 24 hr Category Date Time Status Chest 1V Frontal [CR] Stat Exams 10/31/21 22:24 Taken INFLUENZA A+B AG SCREEN [RM] Stat Lab 10/31/21 22:56 Ordered Isolation [COMM] Routine Oth 10/31/21 22:59 Ordered Labs: Laboratory Tests 10/31/21 10/31/21 10/31/21 Range/Units 22:05 23:15 23:15 WBC 9.38 (3.98-10.04) K/mm3 RBC 4.51 (3.98-5.22) M/mm3 Hgb 13.7 (11.2-15.7) gm/dl Hct 40.4 (34.1-44.9) % MCV 89.6 (79.4-94.8) fl MCH 30.4 (25.6-32.2) pg MCHC 33.9 (32.2-35.5) g/dl RDW Std Deviation 42.7 (36.4-46.3) fL Plt Count 277 (182-369) K/mm3 MPV 11.3 (9.4-12.3) fl Neutrophils % (Manual) 73 H (40-60) % Band Neutrophils % 0 (0-10) % Lymphocytes % (Manual) 15 L (20-40) % Atypical Lymphs % 6 % Monocytes % (Manual) 4 (2-10) % Eosinophils % (Manual) 2 (0.7-5.8) % Basophils % (Manual) 0 L (0.1-1.2) Platelet Estimate Adequate RBC Morph Comment Normal Sodium 143 (136-145) mEq/L Potassium 3.7 (3.5-5.1) mEq/L Chloride 108 H (98-107) mEq/L Carbon Dioxide 22 (21-32) mEq/L Anion Gap 16.7 H (5-15) BUN 10 (7-18) mg/dL Creatinine 0.9 (0.55-1.02) mg/dL Est Cr Clr Drug Dosing 70.32 mL/min Estimated GFR (MDRD) > 60 (>60) mL/min BUN/Creatinine Ratio 11.1 L (14-18) Glucose 95 (70-99) mg/dL Calcium 9.2 (8.5-10.1) mg/dL Total Bilirubin 0.4 (0.2-1.0) mg/dL AST 32 (15-37) U/L ALT 46 (14-59) U/L Alkaline Phosphatase 110 (46-116) U/L C-Reactive Protein 1.0 (<1.0) mg/dL Total Protein 6.7 (6.4-8.2) g/dl Albumin 4.0 (3.4-5.0) g/dl Globulin 2.7 gm/dL Albumin/Globulin Ratio 1.5 (1-2) Influenza Type A RNA Negative (NEGATIVE) Influenza Type B RNA Negative (NEGATIVE) SARS-CoV-2 RNA (LUCIA) Negative (NEGATIVE) Meds: Medications Discontinued Medications Generic Name Dose Route Start Last Admin Trade Name Freq PRN Reason Stop Dose Admin Ketorolac Tromethamine 60 mg 10/31/21 22:59 10/31/21 23:34 Ketorolac 60 Mg/2 Ml Sdv IM 10/31/21 23:00 60 mg ONETIME ONE Administration - Re-Assessments/Exams Free Text/Narrative Re-Assessment/Exam: 10/31/21 23:00 A portable chest x-ray and swab for the SARS-CoV-2 virus were ordered at triage. I have added an influenza A + B viruses and some blood work. In the meantime, the patient's headache will be treated with IM Toradol. 10/31/21 23:20 Portable chest radiograph appears to be grossly normal. The cardiac silhouette is within normal limits. No pulmonary vascular congestion. No pleural effusions seen on this AP view. No focal infiltrate. No hyperinflation. No pneumothorax. Formal read per the Radiologist pending. The patient's swab for the SARS-CoV-2 virus is negative. 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 Her CBC is unremarkable. Her CMP, CRP, and swab for influenza A + B viruses are still pending. I explained to the patient that her work-up is incomplete, therefore I cannot say why she has the symptoms she has, or what she can do about them. The patient expressed understanding. Departure - Departure Time of Disposition: 23:47 Disposition: Home, Self-Care 01 Condition: Good Clinical Impression: Cough, Dyspnea, Vomiting Headache Qualifiers: Headache type: tension-type Headache chronicity pattern: acute headache Intractability: not intractable Qualified Code(s): G44.209 - Tension-type headache, unspecified, not intractable - Discharge Information *PRESCRIPTION DRUG MONITORING PROGRAM REVIEWED*: Not Applicable *COPY OF PRESCRIPTION DRUG MONITORING REPORT IN PATIENT [place]ERARDO: Not Applicable Instructions: Shortness of Breath, Adult, [id number], Cough, Adult, [id number], Vomiting, Adult, General Headache Without Cause, [id number] Referrals: Cinthya Martinez PA-C [Primary Care Provider] - Mario Wallace MD [Physician] - Thang Metzger MD [Ordering Only Provider] - Forms: ED Department Discharge Additional Instructions: You were seen in the emergency room for 3 days of a headache, cough, shortness of breath, sore throat, and feeling feverish with chills, followed by vomiting today. Work-up in the ER included several blood tests, a swab for the SARS-CoV-2 virus and influenza A + B viruses, and a chest x-ray. The swab for the SARS-CoV-2 virus returned negative, your CBC was unremarkable, and your chest x-ray showed no signs of pneumonia. Your swab for influenza A + B viruses and the other blood tests have not yet returned, however, you have indicated that you need to leave the ER. Because your work-up is incomplete, we cannot say what the cause of your symptoms is. Going forward, we recommend that you stop taking NyQuil, as it has been shown to be of no benefit, but does have side effects, such as an upset stomach. If your symptoms persist, please follow-up with your PCP, SAM Leonard, for further evaluation. If any other problems, please do not hesitate to return to the ER. Sepsis Event Note (ED) - Focused Exam Vital Signs: Vital Signs Temp Pulse Resp BP Pulse Ox 10/31/21 21:38 36.7 C 69 20 138/85 97 - My Orders Last 24 Hours: My Active Orders 10/31/21 22:24 Chest 1V Frontal [CR] Stat 10/31/21 22:56 INFLUENZA A+B AG SCREEN [RM] Stat 10/31/21 22:59 Isolation [COMM] Routine - Assessment/Plan Last 24 Hours: My Active Orders 10/31/21 22:24 Chest 1V Frontal [CR] Stat 10/31/21 22:56 INFLUENZA A+B AG SCREEN [RM] Stat 10/31/21 22:59 Isolation [COMM] Routine
--- NOTE | 2021-11-01 06:59 | CR ---
Chest: Portable view of the chest was obtained. Comparison: Prior chest x-ray of 10/10/21. Heart size and mediastinum are within normal limits. Lungs are clear with no acute parenchymal change. Bony structures show nothing acute. Impression: 1. Nothing acute is seen on portable chest x-ray. Diagnostic code #1
== END 2021-11-01 | disposition home or self-care (01) ==
LOC: JD.ED 20:58
DX: G44.209 Tension-type headache, unspecified, not intractable (principal); R06.02 Shortness of breath; R05.9 Cough, unspecified; R11.10 Vomiting, unspecified; I48.91 Unspecified atrial fibrillation; E66.9 Obesity, unspecified; Z68.35 Body mass index [BMI] 35.0-35.9, adult; Z79.01 Long term (current) use of anticoagulants; Z86.73 Personal history of transient ischemic attack (TIA), and cerebral infarction without residual deficits; Z79.899 Other long term (current) drug therapy; Z20.822 Contact with and (suspected) exposure to COVID-19
CPT/HCPCS: 0240U; 36415; 71045; 80053; 85007; 85027; 86140; 96372; 99284; J1885

== ENCOUNTER 2022-02-12 10:44 | Day surgery (SDC) | payer MEDICAID ==
[~2022-02-12 10:44] MED LIST changes: -EPINEPHrine 1 MG/ML 30 ML MDV SCH; +Sodium Chloride 0.9% 10 ML Syringe FLUSH SCH
[2022-02-12] MEDS ORDERED: Propofol 200 MG/20 ML SDV ONE ×4 (10:59→13:00)
[2022-02-12] MEDS ORDERED: Midazolam 1 MG/ML 2 ML SDV ONE (11:00)
[2022-02-12] MEDS ORDERED: fentaNYL 100 MCG/2 ML SDV ONE (11:00)
[2022-02-12] MEDS ORDERED: ceFAZolin 1 GM Vial ONE (11:02)
[2022-02-12] MEDS ORDERED: EPINEPHrine 1 MG/ML SDV ONE (11:15)
[2022-02-12] MEDS ORDERED: Ropivacaine 0.5% 5 MG/ML 30 ML SDV ONE (11:15)
[2022-02-12] MEDS ORDERED: oxyCODONE ER 10 MG TAB.ER PO SCH ×2 (11:15→11:30)
[2022-02-12] MEDS ORDERED: Pregabalin 25 MG Cap PO SCH ×2 (11:15→11:30)
[2022-02-12] MEDS ORDERED: Acetaminophen 325 MG Tab PO SCH ×2 (11:15→11:30)
[2022-02-12] MEDS ORDERED: Sodium Chloride 0.9% 500 ML ONE (11:16)
[2022-02-12] MEDS ORDERED: ePHEDrine 50 MG/ML SDV ONE (12:07)
[2022-02-12] MEDS: Morphine 8 MG, EPINEPHrine 0.3 MG, Cefuroxime 750 MG, Ketorolac 30 MG, Sodium Chloride ... PRN ×10 (12:34→13:04)
[2022-02-12] MEDS: Vancomycin 1 GM SDV ONE ×2 (12:34→13:10)
[2022-02-12] MEDS ORDERED: Lactated Ringers 1,000 ML ONE (12:44)
[2022-02-12] MEDS ORDERED: HYDROmorphone 0.5 MG/0.5 ML Syringe IVPUSH PRN (13:34)
[2022-02-12] MEDS ORDERED: fentaNYL 100 MCG/2 ML SDV IVPUSH PRN (13:34)
[2022-02-12] MEDS ORDERED: Ondansetron 4 MG/2 ML SDV IVPUSH PRN (13:34)
[2022-02-12] MEDS ORDERED: oxyCODONE 5 MG Tab PO ONE (14:51)
[2022-02-12 14:52] VITALS: BP 132/78; PULSE 98
== END 2022-02-12 15:00 | disposition home or self-care (01) ==
LOC: JD.SDS 10:44 → JD.SJHSC 10:44 → JD.SDS 15:00
PROVIDERS: ATTEND Orthopaedic Surgery
DX: M22.2X2 Patellofemoral disorders, left knee (principal); J45.909 Unspecified asthma, uncomplicated; E66.9 Obesity, unspecified; I48.91 Unspecified atrial fibrillation; E55.9 Vitamin D deficiency, unspecified; G43.909 Migraine, unspecified, not intractable, without status migrainosus; G47.00 Insomnia, unspecified; F17.210 Nicotine dependence, cigarettes, uncomplicated; I10 Essential (primary) hypertension; Z98.890 Other specified postprocedural states; Z79.01 Long term (current) use of anticoagulants; Z79.899 Other long term (current) drug therapy; Z86.73 Personal history of transient ischemic attack (TIA), and cerebral infarction without residual deficits; Z68.34 Body mass index [BMI] 34.0-34.9, adult
CPT/HCPCS: 27438; 73560; 97116; 97161; A9270; C1713; C1776; J0171; J0690; J0697; J1885; J2250; J2270; J2704; J2795; J3010; J3370; J7040; J7120; 01392; 64447; 76942

== ENCOUNTER 2022-03-11 14:49 | Emergency (ER) | payer MEDICAID ==
[2022-03-11 15:24] VITALS: BP 155/95; PULSE 94
[2022-03-11] MEDS ORDERED: HYDROmorphone 0.5 MG/0.5 ML Syringe IVPUSH ONE ×2 (15:31→16:57)
[2022-03-11] MEDS ORDERED: Ondansetron 4 MG/2 ML SDV IVPUSH ONE (15:31)
[2022-03-11] MEDS ORDERED: Sodium Chloride 0.9% 10 ML Syringe FLUSH PRN (15:31)
[2022-03-11] MEDS ORDERED: Sodium Chloride 0.9% 1,000 ML IV STA (15:31)
== END 2022-03-11 17:53 | disposition home or self-care (01) ==
LOC: JD.ED 14:49
DX: G89.18 Other acute postprocedural pain (principal); M25.562 Pain in left knee; I48.91 Unspecified atrial fibrillation; K21.9 Gastro-esophageal reflux disease without esophagitis; M19.90 Unspecified osteoarthritis, unspecified site; E66.9 Obesity, unspecified; Z68.35 Body mass index [BMI] 35.0-35.9, adult; Z79.01 Long term (current) use of anticoagulants; Z79.899 Other long term (current) drug therapy; Z86.73 Personal history of transient ischemic attack (TIA), and cerebral infarction without residual deficits; Z72.0 Tobacco use
CPT/HCPCS: 36415; 73562; 80053; 85025; 85379; 86140; 96374; 96375; 96376; 99283; J1170; J2405; J3490; J7030

== ENCOUNTER 2022-06-23 18:11 | Emergency (ER) | payer MEDICAID ==
[2022-06-23 19:49] VITALS: BP 133/85; PULSE 86
[2022-06-23] MEDS ORDERED: Alum Hydrox/Mag Hydrox/Simeth 30 ML, Lidocaine 2% 15 ML PO ONE ×2 (20:15)
[2022-06-23] MEDS ORDERED: Acetaminophen 325 MG Tab PO ONE (20:15)
== END 2022-06-23 20:39 | disposition home or self-care (01) ==
LOC: JD.ED 18:11
DX: J06.9 Acute upper respiratory infection, unspecified (principal); I48.91 Unspecified atrial fibrillation; K21.9 Gastro-esophageal reflux disease without esophagitis; F17.210 Nicotine dependence, cigarettes, uncomplicated; E66.9 Obesity, unspecified; Z68.30 Body mass index [BMI] 30.0-30.9, adult; Z79.01 Long term (current) use of anticoagulants; Z86.73 Personal history of transient ischemic attack (TIA), and cerebral infarction without residual deficits; Z20.822 Contact with and (suspected) exposure to COVID-19
CPT/HCPCS: 87635; 99284; A9270; U0002

== ENCOUNTER 2023-10-20 01:48 | Emergency (ER) | payer MEDICAID ==
[2023-10-20] MEDS ORDERED: Sodium Chloride 0.9% 10 ML Syringe FLUSH PRN (02:16)
[2023-10-20] MEDS ORDERED: Ondansetron 4 MG/2 ML SDV IVPUSH ONE (02:16)
[2023-10-20] MEDS ORDERED: Sodium Chloride 0.9% 1,000 ML IV STA (02:16)
[2023-10-20] MEDS ORDERED: Codeine/Promethazine 10-6.25 MG/5 ML Syrup 5 ML UD Cup PO ONE (02:17)
[2023-10-20 02:26] LABS: BASOPHILS PERCENT AUTO 0.2 % (0.0-1.0); EOSINOPHILS ABSOLUTE AUTO 0.1 K/mm3 (0.0-0.4); EOSINOPHILS PERCENT AUTO 1.7 % (0.0-6.0); HEMATOCRIT 38.1 % (37.0-47.0); IMMATURE GRAN ABSOLUTE AUTO 0.01 K/mm3 (0.00-0.05); IMMATURE GRAN PERCENT AUTO 0.2 % (0.0-0.4); LYMPHOCYTES ABSOLUTE AUTO 1.7 K/mm3 (1.0-4.8); LYMPHOCYTES PERCENT AUTO 41.6 % (24.0-44.0); MEAN CORPUSCULAR HEMOGLOBIN 30.2 pg (28.0-32.0); MEAN CORPUSCULAR HGB CONC 34.1 g/dl (32.0-36.0); MEAN CORPUSCULAR VOLUME 88.4 fl (83.0-99.0); MEAN PLATELET VOLUME 10.2 fl (9.4-12.3); MONOCYTES ABSOLUTE AUTO 0.3 K/mm3 (0.0-0.8); MONOCYTES PERCENT AUTO 6.7 % (0.0-8.0); NEUTROPHILS ABSOLUTE AUTO 2.1 K/mm3 (1.8-7.7); NEUTROPHILS PERCENT AUTO 49.6 % (41.0-71.0); PLATELET COUNT,PLT 229 K/mm3 (150-400); RED BLOOD CELL COUNT 4.31 M/mm3 (4.10-5.30); WHITE BLOOD CELL COUNT,WBC 4.16 K/mm3 (3.9-11.3)
[2023-10-20 02:58] LABS: A/G RATIO 1.2 (1-2); ALBUMIN 3.6 g/dl (3.4-5.0); ANION GAP 16.1 (5-15); BILIRUBIN TOTAL 0.3 mg/dL (0.2-1.0); CALCIUM 8.7 mg/dL (8.5-10.1); CREATININE 0.9 mg/dL (0.55-1.02); EST CRCL DRUG DOSING (CG) 68.88 mL/min; POTASSIUM,K 3.1 mEq/L (3.5-5.1); PROTEIN TOTAL,TP 6.6 g/dl (6.4-8.2)
[2023-10-20 04:19] VITALS: BP 131/87; PULSE 75
== END 2023-10-20 04:15 | disposition home or self-care (01) ==
LOC: JD.ED 01:48
DX: J09.X2 Influenza due to identified novel influenza A virus with other respiratory manifestations (principal); R11.2 Nausea with vomiting, unspecified; F17.210 Nicotine dependence, cigarettes, uncomplicated; I48.91 Unspecified atrial fibrillation; M19.90 Unspecified osteoarthritis, unspecified site; E66.9 Obesity, unspecified; Z90.49 Acquired absence of other specified parts of digestive tract; Z79.899 Other long term (current) drug therapy; Z68.37 Body mass index [BMI] 37.0-37.9, adult
CPT/HCPCS: 36415; 71045; 80053; 83690; 84484; 85025; 93005; 96361; 96374; 99285; A9270; J2405; J7030; 93010; 99284

== ENCOUNTER 2024-04-15 13:58 | Emergency (ER) | payer MEDICAID ==
[2024-04-15 14:24] VITALS: BP 149/100; PULSE 75
[2024-04-15] MEDS: diphenhydrAMINE 50 MG/ML SDV IVPUSH ONE (15:25)
[2024-04-15] MEDS: Sodium Chloride 0.9% 1,000 ML IV SCH (15:25)
[2024-04-15] MEDS: Metoclopramide 10 MG/2 ML SDV IVPUSH ONE (15:27)
[2024-04-15] MEDS: Dexamethasone 4 MG/ML SDV IVPUSH ONE (15:31)
[2024-04-15] MEDS: Magnesium Sulfate/Water 2 GM in Premix Bag 1 BAG IV ONE (15:39)
[2024-04-15] MEDS: Haloperidol Lactate 5 MG/ML SDV IVPUSH ONE (16:20)
== END 2024-04-15 16:20 | disposition home or self-care (01) ==
LOC: JD.ED 13:58
DX: G43.011 Migraine without aura, intractable, with status migrainosus (principal); I48.91 Unspecified atrial fibrillation; J45.909 Unspecified asthma, uncomplicated; K21.9 Gastro-esophageal reflux disease without esophagitis; F17.210 Nicotine dependence, cigarettes, uncomplicated; Z88.8 Allergy status to other drugs, medicaments and biological substances; Z79.899 Other long term (current) drug therapy; Z79.51 Long term (current) use of inhaled steroids; Z79.01 Long term (current) use of anticoagulants; Z86.73 Personal history of transient ischemic attack (TIA), and cerebral infarction without residual deficits
CPT/HCPCS: 36415; 70450; 84703; 86140; 96365; 96375; 99284; J1100; J1200; J2765; J3475; J7030; 99283

== ENCOUNTER 2025-02-09 02:20 | Emergency (ER) | payer MEDICAID ==
[2025-02-09 02:50] LABS: BASOPHILS ABSOLUTE AUTO 0.1 K/mm3 (0.0-0.2); BASOPHILS PERCENT AUTO 0.6 % (0.0-1.0); EOSINOPHILS ABSOLUTE AUTO 0.2 K/mm3 (0.0-0.4); EOSINOPHILS PERCENT AUTO 2.5 % (0.0-6.0); HEMATOCRIT 41.8 % (37.0-47.0); HEMOGLOBIN 14.1 gm/dl (12.0-16.0); IMMATURE GRAN ABSOLUTE AUTO 0.06 K/mm3 (0.00-0.05); IMMATURE GRAN PERCENT AUTO 0.7 % (0.0-0.4); LYMPHOCYTES PERCENT AUTO 23.5 % (24.0-44.0); MEAN CORPUSCULAR HEMOGLOBIN 28.6 pg (28.0-32.0); MEAN CORPUSCULAR HGB CONC 33.7 g/dl (32.0-36.0); MEAN CORPUSCULAR VOLUME 84.8 fl (83.0-99.0); MEAN PLATELET VOLUME 10.7 fl (9.4-12.3); MONOCYTES ABSOLUTE AUTO 0.6 K/mm3 (0.0-0.8); MONOCYTES PERCENT AUTO 7.1 % (0.0-8.0); NEUTROPHILS ABSOLUTE AUTO 5.6 K/mm3 (1.8-7.7); NEUTROPHILS PERCENT AUTO 65.6 % (41.0-71.0); PLATELET COUNT,PLT 235 K/mm3 (150-400); RED BLOOD CELL COUNT 4.93 M/mm3 (4.10-5.30); WHITE BLOOD CELL COUNT,WBC 8.56 K/mm3 (3.9-11.3)
[2025-02-09] MEDS: LORazepam 2 MG/ML SDV IVPUSH ONE (02:59)
[2025-02-09] MEDS: Iopamidol 755 Mg/ML 100 ML Bottle IVPUSH ONE (03:15)
[2025-02-09 03:19] LABS: A/G RATIO 1.2 (1-2); ALBUMIN 3.5 g/dl (3.4-5.0); ANION GAP 15.1 (5-15); BILIRUBIN TOTAL 0.6 mg/dL (0.2-1.0); BUN/CREATININE RATIO 9.1 (14-18); CALCIUM 8.5 mg/dL (8.5-10.1); CREATININE 1.1 mg/dL (0.55-1.02); EST CRCL DRUG DOSING (CG) 55.77 mL/min; MAGNESIUM 1.9 mg/dL (1.8-2.4); POTASSIUM,K 3.1 mEq/L (3.5-5.1); PROTEIN TOTAL,TP 6.5 g/dl (6.4-8.2)
[2025-02-09] MEDS ORDERED: Potassium Chloride 10 MEQ in Premix Bag 1 BAG IV ONE (03:48)
[2025-02-09] MEDS: Potassium Chloride 10 MEQ in Premix Bag 1 BAG IV ONE ×2 (03:58→05:06)
[2025-02-09] MEDS: Potassium Chloride 20 MEQ Tab.ER PO ONE (03:58)
[2025-02-09] MEDS: Sodium Chloride 0.9% 500 ML ONE (04:02)
[2025-02-09] MEDS: Sodium Chloride 0.9% 1,000 ML IV ONE (04:02)
[2025-02-09] MEDS: Sodium Chloride 0.9% 500 ML IV STA (04:03)
[2025-02-09 06:15] VITALS: BP 141/74; PULSE 68
== END 2025-02-09 06:14 | disposition home or self-care (01) ==
LOC: JD.ED 02:20
DX: R06.02 Shortness of breath (principal); E87.6 Hypokalemia; R94.5 Abnormal results of liver function studies; N28.9 Disorder of kidney and ureter, unspecified; R93.1 Abnormal findings on diagnostic imaging of heart and coronary circulation; I48.91 Unspecified atrial fibrillation; J44.89 Other specified chronic obstructive pulmonary disease; E66.9 Obesity, unspecified; K21.9 Gastro-esophageal reflux disease without esophagitis; F17.210 Nicotine dependence, cigarettes, uncomplicated; Z68.39 Body mass index [BMI] 39.0-39.9, adult; Z86.16 Personal history of COVID-19; Z90.49 Acquired absence of other specified parts of digestive tract; Z88.8 Allergy status to other drugs, medicaments and biological substances; Z79.01 Long term (current) use of anticoagulants; Z79.51 Long term (current) use of inhaled steroids; Z79.899 Other long term (current) drug therapy
CPT/HCPCS: 36415; 71275; 71275-26; 80053; 82550; 83690; 83735; 83880; 84484; 85025; 87428-QW; 93005; 93010; 96365; 96366; 96375; 99284; 99285-25; A9270-GY; J2060; J3480; J7030; Q9967

== ENCOUNTER 2025-08-06 02:35 | Emergency (ER) | payer MEDICAID ==
[2025-08-06 05:36] LABS: BASOPHILS ABSOLUTE AUTO 0.1 K/mm3 (0.0-0.2); BASOPHILS PERCENT AUTO 0.7 % (0.0-1.0); EOSINOPHILS ABSOLUTE AUTO 0.2 K/mm3 (0.0-0.4); EOSINOPHILS PERCENT AUTO 2.7 % (0.0-6.0); IMMATURE GRAN ABSOLUTE AUTO 0.03 K/mm3 (0.00-0.05); IMMATURE GRAN PERCENT AUTO 0.4 % (0.0-0.4); LYMPHOCYTES ABSOLUTE AUTO 2.3 K/mm3 (1.0-4.8); LYMPHOCYTES PERCENT AUTO 28.2 % (24.0-44.0); MEAN PLATELET VOLUME 11.9 fl (9.4-12.3); MONOCYTES ABSOLUTE AUTO 0.6 K/mm3 (0.0-0.8); MONOCYTES PERCENT AUTO 7.1 % (0.0-8.0); NEUTROPHILS ABSOLUTE AUTO 5.0 K/mm3 (1.8-7.7); NEUTROPHILS PERCENT AUTO 60.9 % (41.0-71.0); NRBC ABSOLUTE 0.00 (0.00-0.02); NRBC PERCENT 0.0 % (0.0-0.2); PLATELET COUNT,PLT 218 K/mm3 (150-400); RED BLOOD CELL COUNT 4.74 M/mm3 (4.10-5.30); WHITE BLOOD CELL COUNT,WBC 8.22 K/mm3 (3.9-11.3)
[2025-08-06 05:42] LABS: A/G RATIO 1.4 (1-2); ALANINE AMINOTRANSFERASE,ALT 26 U/L (14-59); ASPARTATE AMNIOTRANSFERASE,AST 12 U/L (15-37); BILIRUBIN TOTAL 0.2 mg/dL (0.2-1.0); BLOOD UREA NITROGEN,BUN 12 mg/dL (7-18); CARBON DIOXIDE,CO2 20 mEq/L (21-32); CHLORIDE,CL 110 mEq/L (98-107); CREATININE 0.9 mg/dL (0.55-1.02); EST CRCL DRUG DOSING (CG) 68.16 mL/min; ESTIMATED GFR 80 mL/min (>60); GLUCOSE RANDOM 113 mg/dL (70-99); POTASSIUM,K 3.7 mEq/L (3.5-5.1); PROTEIN TOTAL,TP 6.6 g/dl (6.4-8.2); SODIUM,NA 142 mEq/L (136-145)
[2025-08-06 05:46] LABS: TROPONIN I HIGH SENSITIVITY < 4 pg/mL (<=51)
[2025-08-06 06:37] VITALS: BP 115/67; PULSE 67
== END 2025-08-06 06:35 | disposition home or self-care (01) ==
LOC: JD.ED 02:35
DX: F41.9 Anxiety disorder, unspecified (principal); I48.91 Unspecified atrial fibrillation; E66.9 Obesity, unspecified; J44.89 Other specified chronic obstructive pulmonary disease; F17.200 Nicotine dependence, unspecified, uncomplicated; Z79.899 Other long term (current) drug therapy; Z88.8 Allergy status to other drugs, medicaments and biological substances; Z79.01 Long term (current) use of anticoagulants; Z79.51 Long term (current) use of inhaled steroids; Z86.16 Personal history of COVID-19; Z68.36 Body mass index [BMI] 36.0-36.9, adult
CPT/HCPCS: 36415; 71045; 80053; 84484; 85025; 85379; 93005; 99285; A9270